=== PATIENT | female | born 1955 | race Caucasian/White ===

== ENCOUNTER 2020-01-21 22:42 | Inpatient (IN) | payer BC ==
[2020-01-21] MEDS ORDERED: Ticagrelor 90 MG Tab PO ONE (22:46)
[2020-01-21] MEDS ORDERED: Famotidine 20 MG/2 ML SDV IVPUSH ONE (22:46)
--- NOTE | 2020-01-21 22:46 | EDM.PDOC ---
ED HPI GENERAL MEDICAL PROBLEM - General Chief Complaint: Respiratory Problem Stated Complaint: sob Time Seen by Provider: 01/21/20 22:45 Source of Information: Reports: Patient, Old Records ([facility] chart/EMR) History Limitations: Reports: No Limitations - History of Present Illness INITIAL COMMENTS - FREE TEXT/NARRATIVE: The patient drove herself to the emergency room via private automobile for evaluation of a 4-day history of progressive generalized weakness, dyspnea, and loss of taste and smell sensation. She was seen by her regular provider earlier this afternoon with O2 sat of 94% at that time but possible pneumonia and some nausea from subsequently prescribed antibiotic. Patient also had some previous headaches but not currently. She does complain of 6/10 epigastric burning type sensation with 2 OTC Tums taken 1 hour prior to arrival. Possible fever and chills, however temperature not measured, with last Aleve dose at 10 AM this morning. Her was admitted earlier today with COVID-19 and bilateral pneumonia, however no other known exposure to infection. No recent history of other abdominal pain, emesis, diarrhea, melena, gross hematochezia, or any food intolerance, including fatty foods, etc.. She denies any gross hematuria, colic, or other UTI symptoms. The patient denies any chest pain/pressure, heart flutter, dizziness, orthostasis, orthopnea, diaphoresis, paresthesias, recent decreased exercise tolerance, or any other anginal-type symptoms. No history of recent visual changes, diplopia, change in mental status, or other change in neurological status. Onset: Gradual Onset Date: 01/17/20 Duration: Getting Worse Location: Reports: Abdomen. Denies: Head, Face, Neck, Chest, Back, Upper Extremity, Left, Upper Extremity, Right, Radiates to Quality: Reports: Burning Severity: Moderate Improves with: Reports: None Worsens with: Reports: None Context: Reports: Sick Contact ( as above) Associated Symptoms: Reports: Cough, Fever/Chills, Headaches, Nausea/Vomiting, Shortness of Breath, Weakness. Denies: Confusion, Chest Pain, cough w sputum, Diaphoresis, Loss of Appetite, Malaise, Syncope Treatments PARTS COUNTER ASSOCIATE: Reports: NSAIDS, Other Medication(s) - Related Data Allergies Allergy/AdvReac Type Severity Reaction Status Date / Time nitrofurantoin Allergy Rash Verified 01/21/20 22:44 [From Macrobid] Home Meds: Home Meds Acetaminophen [Tylenol Extra Strength] 500 mg PO BEDTIME 01/21/20 [History] Levofloxacin 500 mg PO DAILY 01/21/20 [History] Multivitamin with Minerals [Multiple Vitamin] 1 tab PO DAILY 01/21/20 [History] Naproxen Sodium [Aleve] 220 mg PO DAILY 01/21/20 [History] Triamterene/Hydrochlorothiazid [Triamterene-HCTZ 37.5-25 MG] 1 tab PO DAILY 01/21/20 [History] Past Medical History HEENT History: Reports: Allergic Rhinitis, Cataract, Other (See Below). Denies: Glaucoma, Hard of Hearing, Impaired Vision, Macular Degeneration, Otitis Media, Retinal Detachment Other HEENT History: Beginning cataracts with no surgeries. Cardiovascular History: Reports: High Cholesterol, Hypertension, Other (See Below). Denies: Afib, Aneurysm, Arrhythmia, Blood Clots/VTE/DVT, CAD, Heart Failure, Heart Murmur, ID, PVD, Syncope Other Cardiovascular History: Hyperlipidemia with no current medical therapy. Respiratory History: Reports: Intubation, Previous, Sleep Apnea, Other (See Below). Denies: Asthma, Bronchitis, Recurrent, COPD, Intubation, Difficult, PE, Pneumonia, Recurrent, Pneumothorax Other Respiratory History: Patient currently uses BiPAP. Gastrointestinal History: Reports: Cholelithiasis. Denies: Bowel Obstruction, Celiac Disease, Chronic Constipation, Chronic Diarrhea, Colon Polyp, Diverticulosis, Fecal Incontinence, Gastritis, GERD, GI Bleed, Hepatitis, Hiatal Hernia, Irritable Bowel Syndrome, Jaundice, Pancreatitis, PUD Genitourinary History: Reports: None. Denies: Acute Renal Failure, Chronic Renal Insuffiency, Renal Calculus, Retention, Urinary, STD, Urinary Incontinence, UTI, Recurrent COSTUMED CHARACTER History: Reports: Dysfunctional Uterine Bleeding, Fibroids, . Denies: Endometriosis, Spontaneous : 4 Para: 4 LMP (Approximate): Other (See Below) Other COSTUMED CHARACTER History: with third secondary to breech presentation. Otherwise full term without complications during pregnancies or deliveries. Surgical menopause as below. Musculoskeletal History: Reports: Back Pain, Chronic, Fracture, Neck Pain, Chronic, Osteoarthritis, Other (See Below). Denies: Arthritis, Gout, RA, SLE Other Musculoskeletal History: Right ankle fracture. Neurological History: Reports: None. Denies: Cerebral Aneurysms, Concussion, CVA, Headaches, Chronic, Head Trauma, Migraines, MS, Neuropathy, Peripheral, Parkinson's, Seizure, TIA Psychiatric History: Reports: None. Denies: Abuse, Victim of, ADD, ADHD, Addiction, Anxiety, Depression, Psych Hospitalization(s), PTSD, Suicide Attempt, Suicidal Ideation Endocrine/Metabolic History: Reports: Obesity/BMI 30+, Osteopenia. Denies: Diabetes, Gestational, Diabetes, Type I, Diabetes, Type II, Diabetes Mellitus, Type 3c, Hypothyroidism, Osteoporosis Hematologic History: Denies: Anemia, Blood Transfusion(s), Iron Deficiency Immunologic History: Reports: None. Denies: AIDS, HIV, SLE Oncologic (Cancer) History: Reports: Basal Cell Carcinoma. Denies: Breast, Cervix, Colon, Hodgkin's Lymphoma, Leukemia, Malignant Melanoma, Non-Hodgkin's Lymphoma, Ovarian, Squamous Cell Carcinoma, Uterine Dermatologic History: Reports: None. Denies: Eczema, Psoriasis - Infectious Disease History Infectious Disease History: Reports: Chicken Pox, MRSA (Right knee cellulitis and left nostril.), Mumps. Denies: C-Difficile, Measles, Meningitis, Mononucleosis, Pertussis (Whooping Cough), Rheumatic Fever, Rubella, Scarlet Fever, Shingles, TB, VRE - Past Surgical History Head Surgeries/Procedures: Reports: None HEENT Surgical History: Reports: Oral Surgery, Other (See Below). Denies: Brenna noidectomy, Cataract Surgery, Eye Surgery, Laser Surgery, LASIK, Myringotomy w Tube(s), Naso-Sinus Surgery, Tonsillectomy Other HEENT Surgeries/Procedures: Ruth teeth extraction x4 in her early 40s with additional teeth extractions. Cardiovascular Surgical History: Reports: None. Denies: Varicose Respiratory Surgical History: Reports: None. Denies: Thoracentesis GI Surgical History: Reports: Cholecystectomy, Colonoscopy, Other (See Below). Denies: Appendectomy, EGD, Hernia, Abdominal, Hernia, Inguinal, Hernia Repair/Other, Polypectomy Other GI Surgeries/Procedures: Colonoscopy in about 2014. Laparoscopic cholecystectomy in 2006. Female Surgical History: Reports: Section, Hysterectomy, Salpingo- Oophorectomy, Other (See Below). Denies: Breast Biopsy, D&C, Tubal Ligation Other Female Surgeries/Procedures: Complete hysterectomy with bilateral salpingo-oophorectomy at age 49 secondary to uterine fibroids. as above. Endocrine Surgical History: Reports: None. Denies: Thyroid Biopsy Neurological Surgical History: Reports: None. Denies: C-Spine, Discectomy, Laminectomy, Lumbar Spine, Sacral Spine, Spinal Fusion, Vertebroplasty Musculoskeletal Surgical History: Reports: ORIF, Other (See Below). Denies: Arthroscopic Procedure, Carpal Tunnel, Ganglion Cyst, Joint Replacement, Shoulder Surgery Other Musculoskeletal Surgeries/Procedures:: Right foot surgery in 2017 including fusion and hallux valgus repair, etc. Oncologic Surgical History: Reports: Other (See Below) Other Oncologic Surgeries/Procedures: Excision of basal cell carcinoma from the right temporal region in 2009 in the left nostril in 2014. Dermatological Surgical History: Reports: Skin Biopsy, Other (See Below) Other Dermatological Surgeries/Procedures: Basal cell carcinoma excisions as above. - Past Imaging History Past Imaging History: Reports: CAT Scan (CT of the head on 02/06/2017.), Ultrasound (Gallbladder ultrasound on 12/18/2006.) Social & Family History - Family History HEENT: Reports: None. Denies: Glaucoma, Macular Degeneration, Retinal Detachment Cardiac: Reports: Hypertension, Other (See Below). Denies: Afib, Aneurysm, Arrhythmia, Blood Clots/VTE/DVT, CAD, Heart Failure, Heart Murmur, High Cholesterol, ID, Pacemaker, Syncope Other Cardiac Family History: Hypertension in parents, 3 brothers and 4 sisters. Respiratory: Reports: COPD, Other (See Below). Denies: Asthma, PE, Pneumothorax, Sleep Apnea Other Respiratory Family Hisory: Sister with probable COPD secondary to tobacco use. GI: Reports: None. Denies: Celiac Disease, Cholelithiasis, Colon Polyps, GI bleed, Hepatitis, Inflammatory Bowel Disease, PUD : Reports: None. Denies: Renal Calculus, Renal Disease/Insufficiency OBGYN: Reports: , Other (See Below). Denies: Dysfunctional uterine bleeding, Endometriosis, Fibroids, Recurrent Spontaneous Other OBGYN Family History: Sister with uterine duplex with infertility and SAB. Musculoskeletal: Reports: Arthritis, RA, Other (See Below). Denies: Gout, SLE Other Musculoskeletal Family History: Mother with rheumatoid arthritis. Neurological: Reports: None. Denies: Alzheimers Disease, Cerebral Aneurysms, CVA, Dementia, Migraines, MS, Parkinson's, Seizure, TIA Psychiatric: Reports: Anxiety, Depression, Other (See Below). Denies: Abuse, Victim of, ADD, ADHD, Psych Hospitalization(s), PTSD, Suicide Attempt Other Psychiatric Family History: Mother with anxiety depression disorder. Son with successful suicide at age 21 with anxiety depression disorder. Endocrine/Metabolic: Reports: Hypothyroidism, Other (See Below). Denies: Diabetes, Type I, Diabetes, type II, Diabetes Mellitus, Type 3c, IDDM Other Endocrine/Metabolic Family History: Maternal grandmother and sister with hypothyroidism. Hematologic: Reports: None. Denies: Anemia, SLE Immunologic: Reports: None. Denies: AIDS, HIV, SLE Dermatologic: Reports: None. Denies: Eczema, Psoriasis Oncologic: Reports: Lung, Other (See Below). Denies: Cervix, Colon, Hodgkin's Lymphoma, Leukemia, Lymphoma, Non-Hodgkin's Lymphoma, Ovarian, Skin, Uterine Other Oncologic Family History: Mother with fatal lung cancer at age 64 with history of tobacco use. Paternal grandfather with history of tobacco use and fatal lung cancer at age 84. - Tobacco Use Tobacco Use Status *Q: Never Tobacco User Tobacco Use Within Last Twelve Months: No Used Tobacco, but Quit: No Smoking Cessation Information Provided To Patient: No Second Hand Smoke Exposure: No Second Hand Smoke Education Provided: No - Caffeine Use Caffeine Use: Reports: Coffee (1 cup/day.). Denies: Energy Drinks, Soda, Tea - Alcohol Use Alcohol Use History: Yes Days Per Week of Alcohol Use: 1 Number of Drinks Per Day: 2 Number of Drinks Per Day Comment: Usually wine. No previous DWIs, problems with alcohol abuse, etc. Total Drinks Per Week: 2 Alcohol Use in Last Twelve Months: Yes - Recreational Drug Use Recreational Drug Use: No Drug Use in Last 12 Months: No Recreational Drug Type: Denies: Amphetamines (Speed), Cocaine, Heroin, Inhalants (Glues, Solvents, Aerosols), LSD (Acid), Marijuana/Hashish, Methamphetamine, Morphine, Oxycodone - Living Situation & Occupation Living situation: Reports: (1975. 4 children.), with Family () Occupation: Employed ([employer] service) ED ROS GENERAL - Review of Systems Review Of Systems: Comprehensive ROS is negative, except as noted in HPI. ED EXAM, GENERAL - Physical Exam Exam: See Below Exam Limited By: No Limitations General Appearance: Alert, WD/WN, No Apparent Distress Eye Exam: Bilateral Eye: EOMI, Normal Inspection (No nystagmus), PERRL Ears: Normal External Exam, Normal Canal, Hearing Grossly Normal, Normal TMs Nose: Normal Mucosa, No Blood, Clear Rhinorrhea Throat/Mouth: Normal Inspection, Normal Lips, Normal Teeth (Occasional missing teeth), Normal Gums, Normal Oropharynx, Normal Voice, No Airway Compromise. No: Dysphagia, Perioral Cyanosis Head: Atraumatic, Normocephalic. No: Facial Swelling, Facial Tenderness, Sinus Tenderness Neck: Normal Inspection, Supple, Non-Tender, Full Range of Motion. No: Carotid Bruit, Lymphadenopathy (L), Lymphadenopathy (R), Thyromegaly Respiratory/Chest: No Respiratory Distress, No Accessory Muscle Use, Chest Non- Tender, Rales (Mild to moderate bilateral diffuse rales particularly in the bases left greater than right). No: Rhonchi, Wheezing, Pleural Rub, Retractions Cardiovascular: Normal Peripheral Pulses, Regular Rate, Rhythm, No Edema, No Gallop, No JVD, No Murmur, No Rub. No: Gallop/S3, Gallop/S4, Friction Rub Peripheral Pulses: 2+: Radial (L), Radial (R), Dorsalis Pedis (L), Dorsalis Pedis (R) GI/Abdominal: Normal Bowel Sounds, Soft, Non-Tender, No Organomegaly, No Distention, No Abnormal Bruit, No Mass, Other (Obese). No: Guarding (Female) Exam: Deferred Rectal (Female) Exam: Deferred Back Exam: Normal Inspection, Full Range of Motion. No: CVA Tenderness (L), CVA Tenderness (R), Muscle Spasm Extremities: Normal Inspection, Normal Range of Motion, Non-Tender, No Pedal Edema, Normal Capillary Refill. No: Jessee's Sign Neurological: Alert, Oriented, CN II-XII Intact, Normal Cognition, Normal Gait, Normal Reflexes, No Motor/Sensory Deficits Psychiatric: Normal Affect, Normal Mood Skin Exam: Warm, Dry, Intact, Normal Color, No Rash. No: Diaphoretic, W ound/Incision Lymphatic: No Adenopathy #1 Interpretation EKG Date: 01/22/20 Time: 00:18 Rhythm: NSR Rate (Beats/Min): 89 [place]: Normal (Left cardiac axis) P-Wave: Present QRS: Wide (0.10 seconds representing repolarization changes versus beginning incomplete right bundle branch block) ST-T: Other (T wave inversion in leads V1 and V2 with possible anterior wall ischemia versus changes from right bundle branch block) QT: Normal KY/PQ Interval: 0.14 seconds with extreme poor R wave progression in the anterior leads Comparison: NA - No Prior EKG EKG Interpretation Comments: 1. Possible anterior wall cardiac ischemia 2. Incomplete right bundle branch block 3. Borderline short [place] interval Course - Vital Signs Last Recorded V/S: Last Vital Signs Temp 38.2 C H 01/21/20 22:47 Pulse 88 01/22/20 00:13 Resp 21 H 01/22/20 00:13 BP 182/95 H 01/22/20 00:13 Pulse Ox 94 L 01/22/20 00:13 Vital Signs - 24 hr 01/21/20 01/21/20 01/22/20 22:44 22:47 00:13 Temperature [ 37.4 C 38.2 C H Temporal] Pulse, 98 91 88 Peripheral [ Pulse Oximetry] Respiratory 21 H 14 21 H Rate Blood Pressure 137/79 146/78 H 182/95 H [Right Upper Arm] O2 Sat by Pulse 89 L 96 94 L Oximetry O2 Sat by Pulse 93 L Oximetry [ Nasal Cannula] - Orders/Labs/Meds Orders: Active Orders 24 hr Category Date Time Status Cardiac Monitoring [RC] . DIRECTED Care 01/21/20 22:47 Active EKG Documentation Completion [RC] ASDIRECTED Care 01/21/20 22:47 Active Oxygen Therapy, ED [RC] PRN Care 01/21/20 22:47 Active Peripheral IV Care [RC] . DIRECTED Care 01/21/20 22:47 Active Pulse Oximetry [RC] CONTINUOUS Care 01/21/20 22:47 Active Up With Assistance [RC] PFP Care 01/21/20 22:47 Active Vital Signs [RC] PFP Care 01/21/20 22:47 Active Nothing per Oral Now Diet [DIET] Diet 01/21/20 Breakfast Active Chest 1V Frontal [CR] Stat Exams 01/21/20 22:47 Taken CORONAVIRUS COVID-19 ROSINA [MOLEC] Stat Lab 01/21/20 22:49 Ordered CULTURE BLOOD [BC] Stat Lab 01/21/20 23:00 Received CULTURE BLOOD [] Stat Lab 01/21/20 23:10 Received CULTURE STREP A CONFIRMATION [] Stat Lab 01/21/20 22:48 Results STREP SCRN A RAPID W CULT CONF [] Stat Lab 01/21/20 22:48 Results Acetaminophen [TylenoL] Med 01/22/20 00:29 Once 650 mg PO NOW ONE Sodium Chloride 0.9% [Saline Flush] Med 01/21/20 22:46 Active 10 ml FLUSH ASDIRECTED PRN cefTRIAXone [Rocephin] 1 gm Med 01/22/20 00:01 Active Sodium Chloride 0.9% [Normal Saline] 100 ml IV ONETIME Blood Culture x2 Reflex Set [OM.PC] Urgent Oth 01/21/20 23:41 Ordered Isolation [COMM] Routine Oth 01/21/20 22:49 Active Obtain Past Medical Record [OM.PC] Urgent Oth 01/21/20 22:47 Active Peripheral IV Insertion Adult [OM.PC] Stat Oth 01/21/20 22:47 Ordered Resuscitation Status Stat Resus Stat 01/21/20 22:46 Ordered EKG 12 Lead [EK] Stat Ther 01/21/20 22:47 Ordered Medication Orders Ceftriaxone Sodium 1 gm/ (Sodium Chloride) 100 mls @ 200 mls/hr IV ONETIME ONE Stop: 01/22/20 00:30 Last Admin: 01/22/20 00:12 Dose: 200 mls/hr Documented by: SEUN Sodium Chloride (Saline Flush) 10 ml FLUSH ASDIRECTED PRN PRN Reason: Keep Vein Open Last Admin: 01/21/20 23:14 Dose: 10 ml Documented by: SEUN Labs: Laboratory Tests 01/21/20 01/21/20 01/21/20 Range/Units 23:00 23:00 23:00 WBC 4.4 (4.0-10.2) K/uL RBC 5.16 H (3.77-5.09) M/uL Hgb 15.4 (11.7-15.5) g/dL Hct 46.7 H (34.0-46.0) % MCV 90.5 (84.0-98.0) fL MCH 29.8 (28.2-33.3) pg MCHC 33.0 (31.7-36.0) g/dL RDW 14.4 H (11.2-14.1) % Plt Count 163 (150-350) K/uL Neut % (Auto) 72.5 (45.0-80.0) % Lymph % (Auto) 21.6 (10.0-50.0) % [place] % (Auto) 5.7 (2.0-14.0) % Eos % (Auto) 0.0 (0.0-5.0) % Baso % (Auto) 0.2 (0.0-2.0) % Neut # (Auto) 3.16 (1.40-7.00) K/uL Lymph # (Auto) 0.94 (0.50-3.50) K/uL [place] # (Auto) 0.25 (0.00-1.00) K/uL Eos # (Auto) 0.00 (0.00-0.50) K/uL Baso # (Auto) 0.01 (0.00-0.20) K/uL PT 10.4 (9.5-12.0) SEC INR 1.0 APTT 26.4 (24.5-32.8) SEC D-Dimer, Quantitative 470 H (0-400) ng/mL Sodium (136-145) mmol/L Potassium (3.5-5.1) mmol/L Chloride (98-107) mmol/L Carbon Dioxide (21.0-32.0) mmol/L BUN (7-18) mg/dL Creatinine (0.51-1.17) mg/dL Est Cr Clr Drug Dosing mL/min Estimated GFR (MDRD) mL/min Glucose (74-106) mg/dL Lactic Acid (0.4-2.0) mmol/L Uric Acid (2.6-7.2) mg/dL Calcium (8.5-10.1) mg/dL Magnesium (1.8-2.4) mg/dL Total Bilirubin (0.2-1.0) mg/dL AST (15-37) U/L ALT (12-78) U/L Alkaline Phosphatase (46-116) IU/L Creatine Kinase (26-308) U/L Creatine Kinase Index (0.0-2.5) % CK-MB (CK-2) (0.00-3.60) ng/mL Troponin I (0.000-0.056) ng/mL NT-Pro-B Natriuret Pep (0-125) pg/mL Total Protein (6.4-8.2) g/dL Albumin (3.4-5.0) g/dL Amylase (25-115) U/L Lipase (73-393) U/L TSH, Ultra Sensitive (0.358-3.740) mIU/mL 01/21/20 01/21/20 Range/Units 23:00 23:00 WBC (4.0-10.2) K/uL RBC (3.77-5.09) M/uL Hgb (11.7-15.5) g/dL Hct (34.0-46.0) % MCV (84.0-98.0) fL MCH (28.2-33.3) pg MCHC (31.7-36.0) g/dL RDW (11.2-14.1) % Plt Count (150-350) K/uL Neut % (Auto) (45.0-80.0) % Lymph % (Auto) (10.0-50.0) % [place] % (Auto) (2.0-14.0) % Eos % (Auto) (0.0-5.0) % Baso % (Auto) (0.0-2.0) % Neut # (Auto) (1.40-7.00) K/uL Lymph # (Auto) (0.50-3.50) K/uL [place] # (Auto) (0.00-1.00) K/uL Eos # (Auto) (0.00-0.50) K/uL Baso # (Auto) (0.00-0.20) K/uL PT (9.5-12.0) SEC INR APTT (24.5-32.8) SEC D-Dimer, Quantitative (0-400) ng/mL Sodium 137 (136-145) mmol/L Potassium 3.6 (3.5-5.1) mmol/L Chloride 98 (98-107) mmol/L Carbon Dioxide 26.1 (21.0-32.0) mmol/L BUN 25 H (7-18) mg/dL Creatinine 0.84 (0.51-1.17) mg/dL Est Cr Clr Drug Dosing 59.28 mL/min Estimated GFR (MDRD) > 60 mL/min Glucose 117 H (74-106) mg/dL Lactic Acid 1.2 (0.4-2.0) mmol/L Uric Acid 4.2 (2.6-7.2) mg/dL Calcium 9.2 (8.5-10.1) mg/dL Magnesium 1.9 (1.8-2.4) mg/dL Total Bilirubin 0.4 (0.2-1.0) mg/dL AST 31 (15-37) U/L ALT 40 (12-78) U/L Alkaline Phosphatase 67 (46-116) IU/L Creatine Kinase 98 (26-308) U/L Creatine Kinase Index 0.6 (0.0-2.5) % CK-MB (CK-2) 0.60 (0.00-3.60) ng/mL Troponin I 0.000 (0.000-0.056) ng/mL NT-Pro-B Natriuret Pep 159 H (0-125) pg/mL Total Protein 8.2 (6.4-8.2) g/dL Albumin 3.8 (3.4-5.0) g/dL Amylase 61 (25-115) U/L Lipase 108 (73-393) U/L TSH, Ultra Sensitive 2.473 (0.358-3.740) mIU/mL COVID-19 rapid test conducted with results pending Blood cultures x2 were collected with results pending Microbiology 01/21/20 22:48 Group A Streptococcus Rapid Screen - Final Throat NEGATIVE STREP A SCREEN REFERENCE RANGE: NEGATIVE 01/21/20 22:49 Influenza Type A Antigen Screen - Final Nasal, Unspecified NEGATIVE INFLUENZA A VIRUS AG REFERENCE RANGE: NEGATIVE Influenza Type B Antigen Screen - Final NEGATIVE INFLUENZA B VIRUS AG REFERENCE RANGE: NEGATIVE Meds: Medications Generic Name Dose Route Start Last Admin Trade Name Freq PRN Reason Stop Dose Admin Ceftriaxone Sodium 1 gm/ 100 mls @ 200 mls/hr 01/22/20 00:01 01/22/20 00:12 Sodium Chloride IV 01/22/20 00:30 200 mls/hr ONETIME ONE Administration Sodium Chloride 10 ml 01/21/20 22:46 01/21/20 23:14 Saline Flush FLUSH 10 ml ASDIRECTED PRN Administration Keep Vein Open Discontinued Medications Generic Name Dose Route Start Last Admin Trade Name Anuradha PRN Reason Stop Dose Admin Famotidine 40 mg 01/21/20 22:46 01/21/20 23:12 Pepcid IVPUSH 01/21/20 22:47 40 mg ONETIME ONE Administration Ticagrelor 180 mg 01/21/20 22:46 01/21/20 23:11 Brilinta PO 01/21/20 22:47 180 mg ONETIME ONE Administration - Radiology Interpretation Free Text/Narrative:: patient monitor shows normal sinus rhythm with average heart rate in the 80-90s with occasional mild sinus tachycardia in the 100s with no ectopy or arrhythmia. Chest x-ray, portable, shows evidence of mild bilateral pulmonary infiltrates including in the bases bilaterally with no cardiomegaly, CHF, or pneumothorax. Departure - Departure Time of Disposition: 00:30 Disposition: Admitted As Inpatient 64 Condition: Good Clinical Impression: D-dimer, elevated, Pneumonia, Hypertension, Peptic reflux disease, Osteoarthritis - Discharge Information Referrals: Joceline Segundo, TEASELER [Primary Care Provider] - Forms: ED Department Discharge Sepsis Event Note (ED) - Focused Exam Vital Signs: Vital Signs Temp Pulse Resp BP Pulse Ox Pulse Ox 01/22/20 00:13 88 21 H 182/95 H 94 L 01/21/20 22:47 38.2 C H 91 14 146/78 H 96 93 L 01/21/20 22:44 37.4 C 98 21 H 137/79 89 L - Problem List & Annotations (1) Pneumonia SNOMED Code(s): 684940086 Code(s): J18.9 - PNEUMONIA, UNSPECIFIED ORGANISM Status: Acute Priority: High Onset Date: 01/22/20 Annotation/Comment:: Lactic acid level is normal with no significant leukocytosis. Blood cultures x2 were collected. COVID-19 rapid test was also collected with significant exposure and her being hospitalized in this facility for bilateral pneumonia, hypoxia, and COVID-19. IV Rocephin initiated in the emergency room with additional initiation of oral doxycycline in the a.m. Combivent therapy as needed. Additional treatment of COVID-19 per guidelines depending on her clinical course. Initially at time of arrival she was only 85 to 87% after minimal exertion on room air however significantly proved O2 sats in the 95th percentile prior to admission without treatment. She is not a candidate for remdesivir at this time secondary to absence of significant hypoxemia at rest. Isolation precautions initiated. Qualifiers: Pneumonia type: due to unspecified organism Laterality: bilateral Lung location: unspecified part of lung Qualified Code(s): J18.9 - Pneumonia, unspecified organism (2) D-dimer, elevated SNOMED Code(s): 733130313 Code(s): R79.89 - OTHER SPECIFIED ABNORMAL FINDINGS OF BLOOD CHEMISTRY Status: Acute Priority: High Onset Date: 01/22/20 Annotation/Comment:: Venous Doppler studies in the a.m. Subcutaneous heparin therapy as treatment both for her D-dimer elevation and COVID-19. [address] CT of the chest depending on her clinical course. (3) Peptic reflux disease SNOMED Code(s): 314024660 Code(s): K21.9 - GASTRO-ESOPHAGEAL REFLUX DISEASE WITHOUT ESOPHAGITIS Status: Acute Priority: Medium Onset Date: 01/21/20 Annotation/Comment:: High-dose IV Pepcid given in the emergency room. Observe for now. Continue IV Pepcid therapy secondary to her probable COVID-19 (4) Osteoarthritis SNOMED Code(s): 347387412 Code(s): M19.90 - UNSPECIFIED OSTEOARTHRITIS, UNSPECIFIED SITE Status: Chronic Priority: Medium Annotation/Comment:: Stable by history. Qualifiers: Osteoarthritis location: multiple joints Osteoarthritis type: primary Qualified Code(s): M89.49 - Other hypertrophic osteoarthropathy, multiple sites (5) Hypertension SNOMED Code(s): 04861459 Code(s): I10 - ESSENTIAL (PRIMARY) HYPERTENSION Status: Chronic Priority: Medium Annotation/Comment:: Moderate control in the emergency room. Continue to observe closely. Qualifiers: Hypertension type: essential hypertension Qualified Code(s): I10 - Essential (primary) hypertension - Problem List Review Problem List Initiated/Reviewed/Updated: Yes - My Orders Last 24 Hours: My Active Orders 01/21/20 Breakfast Nothing per Oral Now Diet [DIET] 01/21/20 22:46 Sodium Chloride 0.9% [Saline Flush] 10 ml FLUSH ASDIRECTED PRN Resuscitation Status Stat 01/21/20 22:47 Cardiac Monitoring [RC] . DIRECTED EKG Documentation Completion [RC] ASDIRECTED Oxygen Therapy, ED [RC] PRN Peripheral IV Care [RC] . DIRECTED Pulse Oximetry [RC] CONTINUOUS Up With Assistance [RC] PFP Vital Signs [RC] PFP Chest 1V Frontal [CR] Stat Obtain Past Medical Record [OM.PC] Urgent Peripheral IV Insertion Adult [OM.PC] Stat EKG 12 Lead [EK] Stat 01/21/20 22:48 CULTURE STREP A CONFIRMATION [RM] Stat STREP SCRN A RAPID W CULT CONF [RM] Stat 01/21/20 22:49 CORONAVIRUS COVID-19 ROSINA [MOLEC] Stat Isolation [COMM] Routine 01/21/20 23:00 CULTURE BLOOD [BC] Stat 01/21/20 23:10 CULTURE BLOOD [BC] Stat 01/21/20 23:41 Blood Culture x2 Reflex Set [OM.PC] Urgent 01/22/20 00:01 cefTRIAXone [Rocephin] 1 gm Sodium Chloride 0.9% [Normal Saline] 100 ml IV ONETIME 01/22/20 00:29 Acetaminophen [TylenoL] 650 mg PO NOW ONE - Assessment/Plan Admission H&P: Please use this note as an admission H&P Last 24 Hours: My Active Orders 01/21/20 Breakfast Nothing per Oral Now Diet [DIET] 01/21/20 22:46 Sodium Chloride 0.9% [Saline Flush] 10 ml FLUSH ASDIRECTED PRN Resuscitation Status Stat 01/21/20 22:47 Cardiac Monitoring [RC] . DIRECTED EKG Documentation Completion [RC] ASDIRECTED Oxygen Therapy, ED [RC] PRN Peripheral IV Care [RC] . DIRECTED Pulse Oximetry [RC] CONTINUOUS Up With Assistance [RC] PFP Vital Signs [RC] PFP Chest 1V Frontal [CR] Stat Obtain Past Medical Record [OM.PC] Urgent Peripheral IV Insertion Adult [OM.PC] Stat EKG 12 Lead [EK] Stat 01/21/20 22:48 CULTURE STREP A CONFIRMATION [RM] Stat STREP SCRN A RAPID W CULT CONF [RM] Stat 01/21/20 22:49 CORONAVIRUS COVID-19 ROSINA [MOLEC] Stat Isolation [COMM] Routine 01/21/20 23:00 CULTURE BLOOD [BC] Stat 01/21/20 23:10 CULTURE BLOOD [BC] Stat 01/21/20 23:41 Blood Culture x2 Reflex Set [OM.PC] Urgent 01/22/20 00:01 cefTRIAXone [Rocephin] 1 gm Sodium Chloride 0.9% [Normal Saline] 100 ml IV ONETIME 01/22/20 00:29 Acetaminophen [TylenoL] 650 mg PO NOW ONE Assessment:: As above Plan: As above. Extensive precautions were given to the patient, who is in agreement with the treatment plan. The patient will require about 3-4 days of inpatient/acute care secondary to multiple health problems as above.
[2020-01-21] MEDS: Sodium Chloride 0.9% 10 ML Syringe FLUSH PRN (23:14)
[2020-01-21 23:21] LABS: PTT,PARTIAL THROMBOPLSTIN TIME 26.4 SEC (24.5-32.8)
[2020-01-21 23:31] LABS: CHLORIDE,CL 98 mmol/L (98-107); SODIUM,NA 137 mmol/L (136-145)
[2020-01-22] MEDS ORDERED: cefTRIAXone 1 GM in Sodium Chloride 0.9% 100 ML IV ONE (00:01)
[2020-01-22] MEDS ORDERED: Acetaminophen 325 MG Tab PO ONE (00:29)
[2020-01-22] MEDS ORDERED: Sodium Chloride 0.9% 10 ML Syringe FLUSH PRN (00:33)
[2020-01-22] MEDS ORDERED: Lisinopril 10 MG Tab PO ONE (00:36)
[2020-01-22] MEDS ORDERED: Albuterol/Ipratropium 4 GM Inhalation Spray INH PRN (00:38)
[2020-01-22] MEDS: Heparin Sodium 5,000 Units/ML Vial SUBCUT SCH ×3 (01:33→15:43)
[2020-01-22] MEDS ORDERED: Iopamidol 612 MG/ML 100 ML Bottle IVPUSH ONE (07:23)
[2020-01-22] MEDS: Doxycycline Monohydrate 100 MG Cap PO SCH ×2 (07:35→17:29)
[2020-01-22] MEDS: Dextromethorphan/guaiFENesin 600-30 MG Tab.ER PO SCH ×2 (07:35→17:29)
[2020-01-22] MEDS: Hydrochlorothiazide/Triamterene 50-75 MG Tab PO SCH (07:35)
[2020-01-22] MEDS ORDERED: Iopamidol 755 Mg/ML 100 ML Bottle IVPUSH STA (07:42)
[2020-01-22 08:20] LABS: HEMOGLOBIN A1C 5.9 % (4.3-5.7)
[2020-01-22] MEDS: Dexamethasone 10 MG/ML SDV IVPUSH SCH (09:09)
--- NOTE | 2020-01-22 09:58 | PCM.PN ---
- General Info Date of Service: 01/22/20 Admission Dx/Problem (Free Text): 1. Pneumonia with probable COVID-19 2. D-dimer elevation 3. Hypertension Functional Status: Reports: Pain Controlled, Tolerating Diet, Ambulating, Urinating, Incentive Spirometry. Denies: New Symptoms Pain Score: 0 - Review of Systems General: Reports: Fever, Weakness (Moderate generalized), Fatigue, Chills, Night Sweats. Denies: Malaise, Appetite (Adequate but decreased) HEENT: Reports: No Symptoms, Post Nasal Drip, Sinus Congestion, Rhinitis. Denies: Dysphasia, Ear Pain, Eye Pain, Headaches, Sore Throat, Visual Changes Pulmonary: Reports: Shortness of Breath, Cough. Denies: Pleuritic Chest Pain, Sputum, Hemoptysis, Wheezing Cardiovascular: Reports: Dyspnea on Exertion. Denies: Chest Pain, Palpitations, Orthopnea, PND, Edema, Lightheadedness Gastrointestinal: Reports: Diarrhea. Denies: Abdominal Pain, Constipation, Decreased Appetite, Difficulty Swallowing, Flatus, Hematochezia, Melena, Nausea, Vomiting Genitourinary: Reports: No Symptoms. Denies: Dysuria, Frequency, Burning, Urgency, Incontinence, Hematuria, Retention, Flank Pain Musculoskeletal: Reports: No Symptoms. Denies: Neck Pain, Shoulder Pain, Arm Pain, Back Pain, Leg Pain Skin: Reports: No Symptoms. Denies: Diaphoresis, Bruising, Pruritis, Rash Neurological: Reports: Weakness. Denies: Confusion, Dizziness, Headache, Numbness, Paresthesia, Syncope, Tingling, Difficulty Walking Psychiatric: Reports: No Symptoms. Denies: Confusion, Depression, Anxiety, Agitation, Cravings, Hallucinations, Homicidal Ideation - Patient Data Vitals - Most Recent: Last Vital Signs Temp 37.4 C 01/22/20 07:37 Pulse 79 01/22/20 07:37 Resp 20 01/22/20 07:37 BP 126/76 01/22/20 07:37 Pulse Ox 94 L 01/22/20 07:37 Vital Signs - 24 hr 01/21/20 01/21/20 01/22/20 22:44 22:47 00:13 Temperature [ 37.4 C 38.2 C H Temporal] Pulse, 98 91 88 Peripheral [ Pulse Oximetry] Respiratory 21 H 14 21 H Rate Blood Pressure Blood Pressure 137/79 146/78 H 182/95 H [Right Upper Arm] O2 Sat by Pulse 89 L 96 94 L Oximetry O2 Sat by Pulse 93 L Oximetry [ Nasal Cannula] 01/22/20 01/22/20 01/22/20 00:33 01:33 02:00 Temperature [ 38.8 C H 37.4 C Temporal] Pulse, 90 78 Peripheral [ Pulse Oximetry] Respiratory 21 H 20 Rate Blood Pressure 195/92 H Blood Pressure 195/99 H 176/84 H [Right Upper Arm] O2 Sat by Pulse 96 96 Oximetry O2 Sat by Pulse Oximetry [ Nasal Cannula] 01/22/20 01/22/20 01/22/20 04:00 05:48 07:37 Temperature [ 37.1 C 37.4 C 37.4 C Temporal] Pulse, 75 70 79 Peripheral [ Pulse Oximetry] Respiratory 12 20 20 Rate Blood Pressure Blood Pressure 120/75 117/75 126/76 [Right Upper Arm] O2 Sat by Pulse 96 90 L 94 L Oximetry O2 Sat by Pulse Oximetry [ Nasal Cannula] Weight - Most Recent: 95.254 kg I&O - Last 24 Hours: Intake & Output 01/21/20 01/22/20 01/22/20 22:59 06:59 14:59 Intake Total 0 Output Total 100 Balance -100 Imaging Impressions - Last 24 Hours: radiation monitor shows normal sinus rhythm in the 70s to 80s with no ectopy or arrhythmia Lab Results Last 24 Hours: Laboratory Results - last 24 hr 01/21/20 01/21/20 01/21/20 Range/Units 23:00 23:00 23:00 WBC 4.4 (4.0-10.2) K/uL RBC 5.16 H (3.77-5.09) M/uL Hgb 15.4 (11.7-15.5) g/dL Hct 46.7 H (34.0-46.0) % MCV 90.5 (84.0-98.0) fL MCH 29.8 (28.2-33.3) pg MCHC 33.0 (31.7-36.0) g/dL RDW 14.4 H (11.2-14.1) % Plt Count 163 (150-350) K/uL Neut % (Auto) 72.5 (45.0-80.0) % Lymph % (Auto) 21.6 (10.0-50.0) % [place] % (Auto) 5.7 (2.0-14.0) % Eos % (Auto) 0.0 (0.0-5.0) % Baso % (Auto) 0.2 (0.0-2.0) % Neut # (Auto) 3.16 (1.40-7.00) K/uL Lymph # (Auto) 0.94 (0.50-3.50) K/uL [place] # (Auto) 0.25 (0.00-1.00) K/uL Eos # (Auto) 0.00 (0.00-0.50) K/uL Baso # (Auto) 0.01 (0.00-0.20) K/uL PT 10.4 (9.5-12.0) SEC INR 1.0 APTT 26.4 (24.5-32.8) SEC D-Dimer, Quantitative 470 H (0-400) ng/mL Sodium (136-145) mmol/L Potassium (3.5-5.1) mmol/L Chloride (98-107) mmol/L Carbon Dioxide (21.0-32.0) mmol/L BUN (7-18) mg/dL Creatinine (0.51-1.17) mg/dL Est Cr Clr Drug Dosing mL/min Estimated GFR (MDRD) mL/min Glucose (74-106) mg/dL Hemoglobin A1c (4.3-5.7) % Lactic Acid (0.4-2.0) mmol/L Uric Acid (2.6-7.2) mg/dL Calcium (8.5-10.1) mg/dL Magnesium (1.8-2.4) mg/dL Total Bilirubin (0.2-1.0) mg/dL AST (15-37) U/L ALT (12-78) U/L Alkaline Phosphatase (46-116) IU/L Creatine Kinase (26-308) U/L Creatine Kinase Index (0.0-2.5) % CK-MB (CK-2) (0.00-3.60) ng/mL Troponin I (0.000-0.056) ng/mL NT-Pro-B Natriuret Pep (0-125) pg/mL Total Protein (6.4-8.2) g/dL Albumin (3.4-5.0) g/dL Triglycerides (30-150) mg/dL Cholesterol (100-200) mg/dL LDL Cholesterol, Calc (0-100) mg/dL HDL Cholesterol (40-60) mg/dL Amylase (25-115) U/L Lipase (73-393) U/L TSH, Ultra Sensitive (0.358-3.740) mIU/mL 01/21/20 01/21/20 01/22/20 Range/Units 23:00 23:00 07:20 WBC (4.0-10.2) K/uL RBC (3.77-5.09) M/uL Hgb (11.7-15.5) g/dL Hct (34.0-46.0) % MCV (84.0-98.0) fL MCH (28.2-33.3) pg MCHC (31.7-36.0) g/dL RDW (11.2-14.1) % Plt Count (150-350) K/uL Neut % (Auto) (45.0-80.0) % Lymph % (Auto) (10.0-50.0) % [place]osh % (Auto) (2.0-14.0) % Eos % (Auto) (0.0-5.0) % Baso % (Auto) (0.0-2.0) % Neut # (Auto) (1.40-7.00) K/uL Lymph # (Auto) (0.50-3.50) K/uL [place] # (Auto) (0.00-1.00) K/uL Eos # (Auto) (0.00-0.50) K/uL Baso # (Auto) (0.00-0.20) K/uL PT (9.5-12.0) SEC INR APTT (24.5-32.8) SEC D-Dimer, Quantitative (0-400) ng/mL Sodium 137 (136-145) mmol/L Potassium 3.6 (3.5-5.1) mmol/L Chloride 98 (98-107) mmol/L Carbon Dioxide 26.1 (21.0-32.0) mmol/L BUN 25 H (7-18) mg/dL Creatinine 0.84 (0.51-1.17) mg/dL Est Cr Clr Drug Dosing 59.28 mL/min Estimated GFR (MDRD) > 60 mL/min Glucose 117 H (74-106) mg/dL Hemoglobin A1c (4.3-5.7) % Lactic Acid 1.2 (0.4-2.0) mmol/L Uric Acid 4.2 (2.6-7.2) mg/dL Calcium 9.2 (8.5-10.1) mg/dL Magnesium 1.9 (1.8-2.4) mg/dL Total Bilirubin 0.4 (0.2-1.0) mg/dL AST 31 (15-37) U/L ALT 40 (12-78) U/L Alkaline Phosphatase 67 (46-116) IU/L Creatine Kinase 98 98 (26-308) U/L Creatine Kinase Index 0.6 0.9 (0.0-2.5) % CK-MB (CK-2) 0.60 0.90 (0.00-3.60) ng/mL Troponin I 0.000 (0.000-0.056) ng/mL NT-Pro-B Natriuret Pep 159 H (0-125) pg/mL Total Protein 8.2 (6.4-8.2) g/dL Albumin 3.8 (3.4-5.0) g/dL Triglycerides 77 (30-150) mg/dL Cholesterol 112 (100-200) mg/dL LDL Cholesterol, Calc 58 (0-100) mg/dL HDL Cholesterol 39 L (40-60) mg/dL Amylase 61 (25-115) U/L Lipase 108 (73-393) U/L TSH, Ultra Sensitive 2.473 (0.358-3.740) mIU/mL 01/22/20 Range/Units 07:20 WBC (4.0-10.2) K/uL RBC (3.77-5.09) M/uL Hgb (11.7-15.5) g/dL Hct (34.0-46.0) % MCV (84.0-98.0) fL MCH (28.2-33.3) pg MCHC (31.7-36.0) g/dL RDW (11.2-14.1) % Plt Count (150-350) K/uL Neut % (Auto) (45.0-80.0) % Lymph % (Auto) (10.0-50.0) % [place]osh % (Auto) (2.0-14.0) % Eos % (Auto) (0.0-5.0) % Baso % (Auto) (0.0-2.0) % Neut # (Auto) (1.40-7.00) K/uL Lymph # (Auto) (0.50-3.50) K/uL [place] # (Auto) (0.00-1.00) K/uL Eos # (Auto) (0.00-0.50) K/uL Baso # (Auto) (0.00-0.20) K/uL PT (9.5-12.0) SEC INR APTT (24.5-32.8) SEC D-Dimer, Quantitative (0-400) ng/mL Sodium (136-145) mmol/L Potassium (3.5-5.1) mmol/L Chloride (98-107) mmol/L Carbon Dioxide (21.0-32.0) mmol/L BUN (7-18) mg/dL Creatinine (0.51-1.17) mg/dL Est Cr Clr Drug Dosing mL/min Estimated GFR (MDRD) mL/min Glucose (74-106) mg/dL Hemoglobin A1c 5.9 H (4.3-5.7) % Lactic Acid (0.4-2.0) mmol/L Uric Acid (2.6-7.2) mg/dL Calcium (8.5-10.1) mg/dL Magnesium (1.8-2.4) mg/dL Total Bilirubin (0.2-1.0) mg/dL AST (15-37) U/L ALT (12-78) U/L Alkaline Phosphatase (46-116) IU/L Creatine Kinase (26-308) U/L Creatine Kinase Index (0.0-2.5) % CK-MB (CK-2) (0.00-3.60) ng/mL Troponin I (0.000-0.056) ng/mL NT-Pro-B Natriuret Pep (0-125) pg/mL Total Protein (6.4-8.2) g/dL Albumin (3.4-5.0) g/dL Triglycerides (30-150) mg/dL Cholesterol (100-200) mg/dL LDL Cholesterol, Calc (0-100) mg/dL HDL Cholesterol (40-60) mg/dL Amylase (25-115) U/L Lipase (73-393) U/L TSH, Ultra Sensitive (0.358-3.740) mIU/mL Laboratory Tests 01/21/20 01/21/20 01/21/20 Range/Units 22:49 23:00 23:00 WBC 4.4 (4.0-10.2) K/uL RBC 5.16 H (3.77-5.09) M/uL Hgb 15.4 (11.7-15.5) g/dL Hct 46.7 H (34.0-46.0) % MCV 90.5 (84.0-98.0) fL MCH 29.8 (28.2-33.3) pg MCHC 33.0 (31.7-36.0) g/dL RDW 14.4 H (11.2-14.1) % Plt Count 163 (150-350) K/uL Neut % (Auto) 72.5 (45.0-80.0) % Lymph % (Auto) 21.6 (10.0-50.0) % [place]osh % (Auto) 5.7 (2.0-14.0) % Eos % (Auto) 0.0 (0.0-5.0) % Baso % (Auto) 0.2 (0.0-2.0) % Neut # (Auto) 3.16 (1.40-7.00) K/uL Lymph # (Auto) 0.94 (0.50-3.50) K/uL [place]osh # (Auto) 0.25 (0.00-1.00) K/uL Eos # (Auto) 0.00 (0.00-0.50) K/uL Baso # (Auto) 0.01 (0.00-0.20) K/uL PT 10.4 (9.5-12.0) SEC INR 1.0 APTT 26.4 (24.5-32.8) SEC D-Dimer, Quantitative (0-400) ng/mL Sodium (136-145) mmol/L Potassium (3.5-5.1) mmol/L Chloride (98-107) mmol/L Carbon Dioxide (21.0-32.0) mmol/L BUN (7-18) mg/dL Creatinine (0.51-1.17) mg/dL Est Cr Clr Drug Dosing mL/min Estimated GFR (MDRD) mL/min Glucose (74-106) mg/dL Hemoglobin A1c (4.3-5.7) % Lactic Acid (0.4-2.0) mmol/L Uric Acid (2.6-7.2) mg/dL Calcium (8.5-10.1) mg/dL Magnesium (1.8-2.4) mg/dL Total Bilirubin (0.2-1.0) mg/dL AST (15-37) U/L ALT (12-78) U/L Alkaline Phosphatase (46-116) IU/L Creatine Kinase (26-308) U/L Creatine Kinase Index (0.0-2.5) % CK-MB (CK-2) (0.00-3.60) ng/mL Troponin I (0.000-0.056) ng/mL NT-Pro-B Natriuret Pep (0-125) pg/mL Total Protein (6.4-8.2) g/dL Albumin (3.4-5.0) g/dL Triglycerides (30-150) mg/dL Cholesterol (100-200) mg/dL LDL Cholesterol, Calc (0-100) mg/dL HDL Cholesterol (40-60) mg/dL Amylase (25-115) U/L Lipase (73-393) U/L TSH, Ultra Sensitive (0.358-3.740) mIU/mL SARS-CoV-2 RNA (ROSINA) Positive H (NEGATIVE) 01/21/20 01/21/20 01/21/20 Range/Units 23:00 23:00 23:00 WBC (4.0-10.2) K/uL RBC (3.77-5.09) M/uL Hgb (11.7-15.5) g/dL Hct (34.0-46.0) % MCV (84.0-98.0) fL MCH (28.2-33.3) pg MCHC (31.7-36.0) g/dL RDW (11.2-14.1) % Plt Count (150-350) K/uL Neut % (Auto) (45.0-80.0) % Lymph % (Auto) (10.0-50.0) % Mc[place]osh % (Auto) (2.0-14.0) % Eos % (Auto) (0.0-5.0) % Baso % (Auto) (0.0-2.0) % Neut # (Auto) (1.40-7.00) K/uL Lymph # (Auto) (0.50-3.50) K/uL Mc[place]osh # (Auto) (0.00-1.00) K/uL Eos # (Auto) (0.00-0.50) K/uL Baso # (Auto) (0.00-0.20) K/uL PT (9.5-12.0) SEC INR APTT (24.5-32.8) SEC D-Dimer, Quantitative 470 H (0-400) ng/mL Sodium 137 (136-145) mmol/L Potassium 3.6 (3.5-5.1) mmol/L Chloride 98 (98-107) mmol/L Carbon Dioxide 26.1 (21.0-32.0) mmol/L BUN 25 H (7-18) mg/dL Creatinine 0.84 (0.51-1.17) mg/dL Est Cr Clr Drug Dosing 59.28 mL/min Estimated GFR (MDRD) > 60 mL/min Glucose 117 H (74-106) mg/dL Hemoglobin A1c (4.3-5.7) % Lactic Acid 1.2 (0.4-2.0) mmol/L Uric Acid 4.2 (2.6-7.2) mg/dL Calcium 9.2 (8.5-10.1) mg/dL Magnesium 1.9 (1.8-2.4) mg/dL Total Bilirubin 0.4 (0.2-1.0) mg/dL AST 31 (15-37) U/L ALT 40 (12-78) U/L Alkaline Phosphatase 67 (46-116) IU/L Creatine Kinase 98 (26-308) U/L Creatine Kinase Index 0.6 (0.0-2.5) % CK-MB (CK-2) 0.60 (0.00-3.60) ng/mL Troponin I 0.000 (0.000-0.056) ng/mL NT-Pro-B Natriuret Pep 159 H (0-125) pg/mL Total Protein 8.2 (6.4-8.2) g/dL Albumin 3.8 (3.4-5.0) g/dL Triglycerides (30-150) mg/dL Cholesterol (100-200) mg/dL LDL Cholesterol, Calc (0-100) mg/dL HDL Cholesterol (40-60) mg/dL Amylase 61 (25-115) U/L Lipase 108 (73-393) U/L TSH, Ultra Sensitive 2.473 (0.358-3.740) mIU/mL SARS-CoV-2 RNA (ROSINA) (NEGATIVE) 01/22/20 01/22/20 Range/Units 07:20 07:20 WBC (4.0-10.2) K/uL RBC (3.77-5.09) M/uL Hgb (11.7-15.5) g/dL Hct (34.0-46.0) % MCV (84.0-98.0) fL MCH (28.2-33.3) pg MCHC (31.7-36.0) g/dL RDW (11.2-14.1) % Plt Count (150-350) K/uL Neut % (Auto) (45.0-80.0) % Lymph % (Auto) (10.0-50.0) % Mcintosh % (Auto) (2.0-14.0) % Eos % (Auto) (0.0-5.0) % Baso % (Auto) (0.0-2.0) % Neut # (Auto) (1.40-7.00) K/uL Lymph # (Auto) (0.50-3.50) K/uL Mcintosh # (Auto) (0.00-1.00) K/uL Eos # (Auto) (0.00-0.50) K/uL Baso # (Auto) (0.00-0.20) K/uL PT (9.5-12.0) SEC INR APTT (24.5-32.8) SEC D-Dimer, Quantitative (0-400) ng/mL Sodium (136-145) mmol/L Potassium (3.5-5.1) mmol/L Chloride (98-107) mmol/L Carbon Dioxide (21.0-32.0) mmol/L BUN (7-18) mg/dL Creatinine (0.51-1.17) mg/dL Est Cr Clr Drug Dosing mL/min Estimated GFR (MDRD) mL/min Glucose (74-106) mg/dL Hemoglobin A1c 5.9 H (4.3-5.7) % Lactic Acid (0.4-2.0) mmol/L Uric Acid (2.6-7.2) mg/dL Calcium (8.5-10.1) mg/dL Magnesium (1.8-2.4) mg/dL Total Bilirubin (0.2-1.0) mg/dL AST (15-37) U/L ALT (12-78) U/L Alkaline Phosphatase (46-116) IU/L Creatine Kinase 98 (26-308) U/L Creatine Kinase Index 0.9 (0.0-2.5) % CK-MB (CK-2) 0.90 (0.00-3.60) ng/mL Troponin I (0.000-0.056) ng/mL NT-Pro-B Natriuret Pep (0-125) pg/mL Total Protein (6.4-8.2) g/dL Albumin (3.4-5.0) g/dL Triglycerides 77 (30-150) mg/dL Cholesterol 112 (100-200) mg/dL LDL Cholesterol, Calc 58 (0-100) mg/dL HDL Cholesterol 39 L (40-60) mg/dL Amylase (25-115) U/L Lipase (73-393) U/L TSH, Ultra Sensitive (0.358-3.740) mIU/mL SARS-CoV-2 RNA (ROSINA) (NEGATIVE) [place] Results Last 24 Hours: Microbiology 01/21/20 22:48 Group A Streptococcus Rapid Screen - Final Throat NEGATIVE STREP A SCREEN REFERENCE RANGE: NEGATIVE 01/21/20 22:49 Influenza Type A Antigen Screen - Final Nasal, Unspecified NEGATIVE INFLUENZA A VIRUS AG REFERENCE RANGE: NEGATIVE Influenza Type B Antigen Screen - Final NEGATIVE INFLUENZA B VIRUS AG REFERENCE RANGE: NEGATIVE Med Orders - Current: Current Medications Albuterol/Ipratropium (Combivent Respimat) 0 gm INH Q4H PRN PRN Reason: Dyspnea Dexamethasone (Decadron) 6 mg IVPUSH DAILY [facility] Last Admin: 01/22/20 09:09 Dose: 6 mg Documented by: Doxycycline Monohydrate (Doxycycline Monohydrate) 100 mg PO BID [facility] Last Admin: 01/22/20 07:35 Dose: 100 mg Documented by: Famotidine (Pepcid) 20 mg IVPUSH Q12H [facility] Guaifenesin/Dextromethorphan (Mucinex Dm Er 600-30 Mg) 1 tab PO BID [facility] Last Admin: 01/22/20 07:35 Dose: 1 tab Documented by: Heparin Sodium (Porcine) (Heparin Sodium) 5,000 units SUBCUT Q8H [facility] Last Admin: 01/22/20 07:35 Dose: 5,000 units Documented by: Remdesivir 200 mg/ Sodium (Chloride) 290 mls @ 290 mls/hr IV ONETIME ONE Stop: 01/22/20 09:50 Remdesivir 100 mg/ Sodium (Chloride) 270 mls @ 270 mls/hr IV Q24H [facility] Stop: 01/26/20 10:01 Lisinopril (Prinivil) 10 mg PO QPM [facility] Sodium Chloride (Saline Flush) 10 ml FLUSH ASDIRECTED PRN PRN Reason: Keep Vein Open Last Admin: 01/21/20 23:14 Dose: 10 ml Documented by: Sodium Chloride (Saline Flush) 10 ml FLUSH Q12HR PRN PRN Reason: Keep Vein Open Temazepam (Restoril) 15 mg PO BEDTIME PRN PRN Reason: Insomnia Triamterene/HCTZ (Maxzide 50-75 Mg) 0.5 each PO DAILY [facility] Last Admin: 01/22/20 07:35 Dose: 0.5 each Documented by: Discontinued Medications Acetaminophen (Tylenol) 650 mg PO NOW ONE Stop: 01/22/20 00:30 Last Admin: 01/22/20 00:31 Dose: 650 mg Documented by: Famotidine (Pepcid) 40 mg IVPUSH ONETIME ONE Stop: 01/21/20 22:47 Last Admin: 01/21/20 23:12 Dose: 40 mg Documented by: Ceftriaxone Sodium 1 gm/ (Sodium Chloride) 100 mls @ 200 mls/hr IV ONETIME ONE Stop: 11/04/20 00:30 Last Admin: 01/22/20 00:12 Dose: 200 mls/hr Documented by: Iopamidol (Isovue-370 (76%)) 100 ml IVPUSH ONETIME STA Stop: 01/22/20 07:43 Lisinopril (Prinivil) 10 mg PO ONETIME ONE Stop: 01/22/20 00:37 Last Admin: 01/22/20 01:33 Dose: 10 mg Documented by: Ticagrelor (Brilinta) 180 mg PO ONETIME ONE Stop: 01/21/20 22:47 Last Admin: 01/21/20 23:11 Dose: 180 mg Documented by: - Exam Quality Assessment: Supplemental Oxygen, DVT Prophylaxis (Subcutaneous heparin). No: Central Line/PICC, Urine Catheter, Skin Breakdown, Restraints General: Alert, Oriented, Cooperative, No Acute Distress HEENT: Pupils Equal, Pupils Reactive, EOMI, Mucous Membr. Moist/[place]. No: Scleral Icterus Neck: Supple, Trachea Midline, No JVD, No Thyromegaly, +2 Carotid Pulse wo Bruit. No: Lymphadenopathy Lungs: Normal Respiratory Effort, Rales (Persistent mild diffuse bilateral rales particularly at the bases left greater than right). No: Rhonchi, Rub, Stridor, Wheezing Cardiovascular: Regular Rate, Regular Rhythm, No Murmurs. No: Gallops, Rubs GI/Abdominal Exam: Normal Bowel Sounds, Soft, Non-Tender, No Organomegaly, No Distention, No Abnormal Bruit, No Mass, Other (Obese). No: Guarding (Female) Exam: Deferred Back Exam: Normal Inspection, Full Range of Motion. No: CVA Tenderness (L), CVA Tenderness (R), Muscle Spasm Extremities: Normal Inspection, Normal Range of Motion, Non-Tender, No Pedal Edema, Normal Capillary Refill. No: [place]'s Sign Peripheral Pulses: 2+: Radial (L), Radial (R), Dorsalis Pedis (L), Dorsalis Pedis (R) Skin: Warm, Dry, Intact. No: Rash, Ecchymosis Neurological: No New Focal Deficit, Other (No clinical orthostasis. Stable generalized weakness. No gross deficits including negative Babinski's.) Psy/Mental Status: Alert, Normal Affect, Normal Mood. No: Agitated, Hallucinations, Withdrawal Symptoms #1 Interpretation EKG Date: 01/22/20 Time: 10:45 Rhythm: NSR Rate (Beats/Min): 79 [place]: Normal (Left cardiac axis) P-Wave: Present QRS: Wide (0.10 seconds representing repolarization changes) ST-T: Normal (T wave inversion lead V1 with resolution of T wave inversions in leads V2 and V3) QT: Normal MS/PQ Interval: 0.18 seconds. Poor R wave progression in the anterior leads with resolution of previous borderline short MS interval Comparison: Change From Previous EKG (As above since 01/21/2020.) EKG Interpretation Comments: 1. No acute ischemic changes with resolution of previous borderline anterior wall ischemia 2. Repolarization changes Sepsis Event Note - Evaluation Sepsis Screening Result: No Definite Risk - Focused Exam Vital Signs: Vital Signs Temp Pulse Resp BP BP Pulse Ox Pulse Ox 01/22/20 07:37 37.4 C 79 20 126/76 94 L 01/22/20 05:48 37.4 C 70 20 117/75 90 L 01/22/20 04:00 37.1 C 75 12 120/75 96 01/22/20 02:00 37.4 C 78 20 176/84 H 96 01/22/20 01:33 195/92 H 01/22/20 00:33 38.8 C H 90 21 H 195/99 H 96 01/22/20 00:13 88 21 H 182/95 H 94 L 01/21/20 22:47 38.2 C H 91 14 146/78 H 96 93 L 01/21/20 22:44 37.4 C 98 21 H 137/79 89 L - Problem List & Annotations (1) Pneumonia SNOMED Code(s): 499890351 Code(s): J18.9 - PNEUMONIA, UNSPECIFIED ORGANISM Status: Acute Priority: High Current Visit: Yes Onset Date: 01/22/20 Qualifiers: Pneumonia type: due to unspecified organism Laterality: bilateral Lung location: unspecified part of lung Qualified Code(s): J18.9 - Pneumonia, unspecified organism Annotation/Comment:: Lactic acid level is normal with no significant leukocytosis. Blood cultures x2 were collected. COVID-19 rapid test was also c ollected on admission with positive test results this morning. Secondary to progressive/new O2 requirements patient was started on IV Decadron and IV remdesivir on 01/21. She was counseled extensively concerning the experimental nature of this medical therapy, risk and benefits, etc. and was provided extensive written information, which she did sign and acknowledge. Note significant exposure and her being hospitalized in this facility for bilateral pneumonia, hypoxia, and COVID-19 with subsequent transfer of her to [facility] on 01/21. IV Rocephin initiated in the emergency room with additional initiation of oral doxycycline in the a.m. Combivent therapy as needed with additional incentive spirometry initiated. Additional treatment of COVID-19 per guidelines initiated on 01/21 as above. She is not a candidate for convalescent plasma, which is not available in this facility, to this point, however low threshold for transfer to [facility] depending on her clinical course. Initially at time of arrival in the emergency room the patient was only 85 to 87% after minimal exertion on room air however significantly proved O2 sats in the 95th percentile on room air at rest prior to admission without treatment. Isolation precautions initiated. (2) COVID-19 SNOMED Code(s): 409086603 Code(s): U07.1 - COVID-19 Status: Acute Priority: High Current Visit: Yes Onset Date: ~01/21/20 Annotation/Comment:: As above. (3) D-dimer, elevated SNOMED Code(s): 355297376 Code(s): R79.89 - OTHER SPECIFIED ABNORMAL FINDINGS OF BLOOD CHEMISTRY Status: Acute Priority: High Current Visit: Yes Onset Date: 01/22/20 Annotation/Comment:: Venous Doppler studies of the lower extremities bilaterally and CTA of the chest using PE protocol in the a.m. of 01/22/2020 were both negative for DVT and/or PE. Subcutaneous heparin therapy initiated on admission as treatment both for her D-dimer elevation and COVID-19. Note that sodium heparin therapy has a better anti-inflammatory effect for COVID-19 in comparison to Lovenox based on studies. (4) Peptic reflux disease SNOMED Code(s): 989008932 Code(s): K21.9 - GASTRO-ESOPHAGEAL REFLUX DISEASE WITHOUT ESOPHAGITIS Status: Acute Priority: Medium Current Visit: Yes Onset Date: 01/21/20 Annotation/Comment:: High-dose IV Pepcid given in the emergency room. Observe for now. Continue IV Pepcid therapy secondary to her COVID-19 and his GI prophylaxis secondary to her IV Decadron therapy. (5) Osteoarthritis SNOMED Code(s): 407286618 Code(s): M19.90 - UNSPECIFIED OSTEOARTHRITIS, UNSPECIFIED SITE Status: Chronic Priority: Medium Current Visit: Yes Qualifiers: Osteoarthritis location: multiple joints Osteoarthritis type: primary Qualified Code(s): M89.49 - Other hypertrophic osteoarthropathy, multiple sites Annotation/Comment:: Stable by history. (6) Hypertension SNOMED Code(s): 91546460 Code(s): I10 - ESSENTIAL (PRIMARY) HYPERTENSION Status: Chronic Priority: Medium Current Visit: Yes Qualifiers: Hypertension type: essential hypertension Qualified Code(s): I10 - Essential (primary) hypertension Annotation/Comment:: Moderate control in the emergency room however improved after initiation of lisinopril shortly after admission. Continue this therapy both for treatment of her hypertension and COVID-19. Continue to observe closely. - Problem List Review Problem List Initiated/Reviewed/Updated: Yes - My Orders Last 24 Hours: My Active Orders 01/21/20 22:46 Sodium Chloride 0.9% [Saline Flush] 10 ml FLUSH ASDIRECTED PRN Resuscitation Status Stat 01/21/20 22:47 Cardiac Monitoring [RC] Q2HR Peripheral IV Care [RC] Chest 1V Frontal [CR] Stat Peripheral IV Insertion Adult [OM.PC] Stat EKG 12 Lead [EK] Stat 01/21/20 22:48 CULTURE STREP A CONFIRMATION [RM] Stat STREP SCRN A RAPID W CULT CONF [RM] Stat 01/21/20 22:49 CORONAVIRUS COVID-19 ROSINA [MOLEC] Stat Isolation [COMM] Routine 01/21/20 23:00 CULTURE BLOOD [BC] Stat 01/21/20 23:10 CULTURE BLOOD [BC] Stat 01/21/20 23:41 Blood Culture x2 Reflex Set [OM.PC] Urgent 01/22/20 00:00 Heparin Sodium 5,000 units SUBCUT Q8H 01/22/20 00:33 Antiembolic Devices [RC] 08,20 Communication Order [RC] PER UNIT ROUTINE Communication, Vaccine [RC] 08,20 Height and Weight [RC] DAILY Intake and Output Strict [RC] 06,18 Oxygen Therapy [RC] 2300 Pulse Oximetry [RC] .PRN Up With Assistance [RC] ASDIRECTED Vaccines to be Administered [RC] .DISCHARGE Sodium Chloride 0.9% [Saline Flush] 10 ml FLUSH Q12HR PRN Temazepam [Restoril] 15 mg PO BEDTIME PRN Antiembolic Hose [OM.PC] Routine DVT/VTE Prophylaxis Reflex [OM.PC] Routine GM Immunization Reflex [OM.PC] Click to Edit 01/22/20 00:38 Albuterol/Ipratropium [Combivent Respimat] See Dose Instructions INH Q4H PRN 01/22/20 00:39 RT Post Treatment Assessment [RC] Click to Edit RT Pre-Treatment Assessment [RC] Click to Edit CULTURE SPUTUM + SMEAR [RM] Routine 01/22/20 00:40 RT Incentive Spirometry [RC] Q2HWA 01/22/20 00:45 H PYLORI STOOL ANTIGEN [MREF] ONETIME 01/22/20 00:55 Communication Order [RC] ROUTINE 01/22/20 05:11 EKG Documentation Completion [RC] ASDIRECTED Chest PE [Ang Chest] [CT] Stat Venous Doppler Lwr Ext Bi [US] Urgent 01/22/20 Breakfast Heart Healthy Diet [DIET] 01/22/20 08:00 Dextromethorphan/guaiFENesin [Mucinex DM ER 600-30 MG] 1 tab PO BID Doxycycline Monohydrate 100 mg PO BID HCTZ/Triamterene [Maxzide 50-75 MG] 0.5 each PO DAILY 01/22/20 08:51 Vital Signs [RC] Q4HR 01/22/20 08:57 EKG Documentation Completion [RC] ASDIRECTED 01/22/20 09:00 dexAMETHasone [Decadron] 6 mg IVPUSH DAILY 01/22/20 09:49 Remdesivir (Eua) [Remdesivir (EUA)] 200 mg Sodium Chloride 0.9% [Normal Saline] 250 ml IV ONETIME 01/22/20 18:00 Famotidine [Pepcid] 20 mg IVPUSH Q12H lisinopriL [Prinivil] 10 mg PO QPM 01/23/20 05:11 Chest 1V Frontal [CR] Routine CBC WITH AUTO DIFF [HEME] Routine CK W CKMB [CHEM] Routine COMPREHENSIVE METABOLIC PN,CMP [CHEM] Routine D-DIMER QUANTITATIVE [COAG] Routine PRO B-TYPE NATRIUR PEPT,BNPPRO [CHEM] Routine TROPONIN I [CHEM] Routine EKG 12 Lead [EK] Routine 01/23/20 10:00 Remdesivir (Eua) [Remdesivir (EUA)] 100 mg Sodium Chloride 0.9% [Normal Saline] 250 ml IV Q24H - Assessment Assessment:: As above - Plan Plan:: As above. Extensive precautions were given to the patient, who is in agreement with the treatment plan. The patient will require about 3-4 days of inpatient/acute care secondary to multiple health problems as above.
[2020-01-22] MEDS: Sodium Chloride 0.9% 10 ML Syringe FLUSH PRN ×2 (10:33→17:30)
[2020-01-22] MEDS: Famotidine 20 MG/2 ML SDV IVPUSH SCH (17:29)
[2020-01-22] MEDS: Lisinopril 10 MG Tab PO SCH (17:30)
[2020-01-23] MEDS: Heparin Sodium 5,000 Units/ML Vial SUBCUT SCH ×3 (00:36→17:41)
[2020-01-23 09:08] LABS: CHLORIDE,CL 103 mmol/L (98-107); SODIUM,NA 140 mmol/L (136-145)
[2020-01-23] MEDS: Dexamethasone 10 MG/ML SDV IVPUSH SCH (09:38)
[2020-01-23] MEDS: Sodium Chloride 0.9% 10 ML Syringe FLUSH PRN ×2 (09:38→09:56)
[2020-01-23] MEDS ORDERED: Albuterol/Ipratropium 4 GM Inhalation Spray INH PRN (09:40)
[2020-01-23] MEDS: Famotidine 20 MG/2 ML SDV IVPUSH SCH ×2 (09:40→17:48)
[2020-01-23] MEDS: Hydrochlorothiazide/Triamterene 50-75 MG Tab PO SCH (09:42)
[2020-01-23] MEDS: Dextromethorphan/guaiFENesin 600-30 MG Tab.ER PO SCH ×2 (09:46→17:46)
[2020-01-23] MEDS: Doxycycline Monohydrate 100 MG Cap PO SCH ×2 (09:46→17:44)
--- NOTE | 2020-01-23 10:51 | PCM.PN ---
- General Info Date of Service: 01/23/20 Admission Dx/Problem (Free Text): 1. Pneumonia with probable COVID-19 2. D-dimer elevation 3. Hypertension Functional Status: Reports: Pain Controlled, Tolerating Diet, Ambulating, Urinating, New Symptoms, Incentive Spirometry Pain Score: 0 - Review of Systems General: Reports: Fever, Weakness (Improving), Fatigue (Improving), Chills, Night Sweats. Denies: Malaise, Appetite (Adequate) HEENT: Reports: Post Nasal Drip, Rhinitis. Denies: Dysphasia, Ear Pain, Eye Pain, Headaches, Sinus Congestion, Sore Throat, Visual Changes Pulmonary: Reports: Shortness of Breath, Cough. Denies: Pleuritic Chest Pain, Sputum, Hemoptysis, Wheezing Cardiovascular: Reports: No Symptoms, Dyspnea on Exertion. Denies: Chest Pain, Palpitations, Orthopnea, PND, Edema, Lightheadedness Gastrointestinal: Reports: No Symptoms. Denies: Abdominal Pain, Constipation, Decreased Appetite, Diarrhea (3 loose stools during the last 24 hours), Difficulty Swallowing, Flatus, Hematochezia, Melena, Nausea, Vomiting Genitourinary: Reports: No Symptoms. Denies: Dysuria, Frequency, Burning, Pain, Urgency, Incontinence, Hematuria, Retention, Flank Pain Musculoskeletal: Reports: No Symptoms. Denies: Neck Pain, Shoulder Pain, Arm Pain, Back Pain, Leg Pain Skin: Reports: No Symptoms. Denies: Diaphoresis, Bruising Neurological: Reports: Weakness (As above). Denies: Confusion, Dizziness, Headache, Numbness, Paresthesia, Tingling Psychiatric: Reports: No Symptoms. Denies: Confusion, Depression, Mood Lability, Anxiety (Although the patient is worried about her , who also has COVID-19 and was transferred to [facility] yesterday from this facility), Agitation, Cravings, Hallucinations - Patient Data Vitals - Most Recent: Last Vital Signs Temp 37.1 C 01/23/20 08:00 Pulse 86 01/23/20 08:00 Resp 14 01/23/20 08:00 BP 128/79 01/23/20 08:00 Pulse Ox 93 L 01/23/20 08:00 Vital Signs - 24 hr 01/22/20 01/22/20 01/22/20 12:00 15:53 17:30 Temperature [ Oral] Temperature [ 37.4 C 37.1 C Temporal] Pulse, 89 85 Peripheral [ Pulse Oximetry] Respiratory 20 20 Rate Blood Pressure 130/85 Blood Pressure [Left Upper Arm ] Blood Pressure 128/80 132/80 [Right Upper Arm] O2 Sat by Pulse 92 L 92 L Oximetry 01/22/20 01/23/20 01/23/20 20:00 00:00 04:00 Temperature [ 37.7 C 37.3 C 37.0 C Oral] Temperature [ Temporal] Pulse, 85 77 65 Peripheral [ Pulse Oximetry] Respiratory 18 18 18 Rate Blood Pressure Blood Pressure 124/85 123/78 136/73 [Left Upper Arm ] Blood Pressure [Right Upper Arm] O2 Sat by Pulse 93 L 92 L 94 L Oximetry 01/23/20 08:00 Temperature [ 37.1 C Oral] Temperature [ Temporal] Pulse, 86 Peripheral [ Pulse Oximetry] Respiratory 14 Rate Blood Pressure Blood Pressure [Left Upper Arm ] Blood Pressure 128/79 [Right Upper Arm] O2 Sat by Pulse 93 L Oximetry Weight - Most Recent: 95.254 kg I&O - Last 24 Hours: Intake & Output 01/22/20 01/23/20 01/23/20 22:59 06:59 14:59 Intake Total 750 500 180 Balance 750 500 180 Imaging Impressions - Last 24 Hours: color television console monitor shows average heart rate in the 70s with no ectopy or arrhythmia. Chest x-ray, portable, shows mild cardiomegaly, aortic valve calcification, and proximal aortic arch enlargement with no CHF or pneumothorax. Mild to moderate bilateral lower lobe pulmonary infiltrates particularly in the left lower lobe. Moderate COPD changes. Lab Results Last 24 Hours: Laboratory Results - last 24 hr 01/23/20 01/23/20 01/23/20 Range/Units 07:10 07:10 07:10 WBC 5.5 (4.0-10.2) K/uL RBC 4.75 (3.77-5.09) M/uL Hgb 14.1 (11.7-15.5) g/dL Hct 42.5 (34.0-46.0) % MCV 89.5 (84.0-98.0) fL MCH 29.7 (28.2-33.3) pg MCHC 33.2 (31.7-36.0) g/dL RDW 14.2 H (11.2-14.1) % Plt Count 171 (150-350) K/uL Neut % (Auto) 81.8 H (45.0-80.0) % Lymph % (Auto) 12.5 (10.0-50.0) % [place] % (Auto) 5.7 (2.0-14.0) % Eos % (Auto) 0.0 (0.0-5.0) % Baso % (Auto) 0.0 (0.0-2.0) % Neut # (Auto) 4.46 (1.40-7.00) K/uL Lymph # (Auto) 0.68 (0.50-3.50) K/uL [place] # (Auto) 0.31 (0.00-1.00) K/uL Eos # (Auto) 0.00 (0.00-0.50) K/uL Baso # (Auto) 0.00 (0.00-0.20) K/uL D-Dimer, Quantitative 221 (0-400) ng/mL Sodium 140 (136-145) mmol/L Potassium 3.2 L (3.5-5.1) mmol/L Chloride 103 (98-107) mmol/L Carbon Dioxide 23.7 (21.0-32.0) mmol/L BUN 33 H (7-18) mg/dL Creatinine 0.78 (0.51-1.17) mg/dL Est Cr Clr Drug Dosing 63.84 mL/min Estimated GFR (MDRD) > 60 mL/min Glucose 130 H (74-106) mg/dL Lactic Acid (0.4-2.0) mmol/L Calcium 8.6 (8.5-10.1) mg/dL Total Bilirubin 0.3 (0.2-1.0) mg/dL AST 26 (15-37) U/L ALT 34 (12-78) U/L Alkaline Phosphatase 58 (46-116) IU/L Creatine Kinase 108 (26-308) U/L Creatine Kinase Index 1.1 (0.0-2.5) % CK-MB (CK-2) 1.20 (0.00-3.60) ng/mL Troponin I 0.000 (0.000-0.056) ng/mL NT-Pro-B Natriuret Pep 145 H (0-125) pg/mL Total Protein 7.4 (6.4-8.2) g/dL Albumin 3.2 L (3.4-5.0) g/dL 01/23/20 Range/Units 07:10 WBC (4.0-10.2) K/uL RBC (3.77-5.09) M/uL Hgb (11.7-15.5) g/dL Hct (34.0-46.0) % MCV (84.0-98.0) fL MCH (28.2-33.3) pg MCHC (31.7-36.0) g/dL RDW (11.2-14.1) % Plt Count (150-350) K/uL Neut % (Auto) (45.0-80.0) % Lymph % (Auto) (10.0-50.0) % [place] % (Auto) (2.0-14.0) % Eos % (Auto) (0.0-5.0) % Baso % (Auto) (0.0-2.0) % Neut # (Auto) (1.40-7.00) K/uL Lymph # (Auto) (0.50-3.50) K/uL [place] # (Auto) (0.00-1.00) K/uL Eos # (Auto) (0.00-0.50) K/uL Baso # (Auto) (0.00-0.20) K/uL D-Dimer, Quantitative (0-400) ng/mL Sodium (136-145) mmol/L Potassium (3.5-5.1) mmol/L Chloride (98-107) mmol/L Carbon Dioxide (21.0-32.0) mmol/L BUN (7-18) mg/dL Creatinine (0.51-1.17) mg/dL Est Cr Clr Drug Dosing mL/min Estimated GFR (MDRD) mL/min Glucose (74-106) mg/dL Lactic Acid 1.1 (0.4-2.0) mmol/L Calcium (8.5-10.1) mg/dL Total Bilirubin (0.2-1.0) mg/dL AST (15-37) U/L ALT (12-78) U/L Alkaline Phosphatase (46-116) IU/L Creatine Kinase (26-308) U/L Creatine Kinase Index (0.0-2.5) % CK-MB (CK-2) (0.00-3.60) ng/mL Troponin I (0.000-0.056) ng/mL NT-Pro-B Natriuret Pep (0-125) pg/mL Total Protein (6.4-8.2) g/dL Albumin (3.4-5.0) g/dL Chucky Results Last 24 Hours: Microbiology 01/21/20 22:48 Quick Strep Confirmation Culture - Final Throat NO GROUP A STREP ISOLATED REFERENCE RANGE: NEGATIVE Group A Streptococcus Rapid Screen - Final NEGATIVE STREP A SCREEN REFERENCE RANGE: NEGATIVE 01/21/20 23:10 Aerobic Blood Culture - Preliminary Blood - Venous - Lab Draw NO GROWTH AFTER 1 DAY Anaerobic Blood Culture - Preliminary NO GROWTH AFTER 1 DAY 01/21/20 23:00 Aerobic Blood Culture - Preliminary Blood - Venous NO GROWTH AFTER 1 DAY Anaerobic Blood Culture - Preliminary NO GROWTH AFTER 1 DAY 01/22/20 00:33 Stool Occult Blood (CHUCKY) - Final Stool / Feces NEGATIVE OCCULT BLOOD REFERENCE RANGE: NEGATIVE Med Orders - Current: Current Medications Albuterol/Ipratropium (Combivent Respimat) 0 gm INH Q4H PRN PRN Reason: Dyspnea Albuterol/Ipratropium (Combivent Respimat) 0 gm INH QID KELLY Albuterol/Ipratropium (Combivent Respimat) 0 gm INH Q4H PRN PRN Reason: Dyspnea Dexamethasone (Decadron) 6 mg IVPUSH DAILY [facility] Last Admin: 01/23/20 09:38 Dose: 6 mg Documented by: Doxycycline Monohydrate (Doxycycline Monohydrate) 100 mg PO BID [facility] Last Admin: 01/23/20 09:46 Dose: 100 mg Documented by: Famotidine (Pepcid) 20 mg IVPUSH BID@0800,1800 [facility] Last Admin: 01/23/20 09:40 Dose: 20 mg Documented by: Guaifenesin/Dextromethorphan (Mucinex Dm Er 600-30 Mg) 1 tab PO BID [facility] Last Admin: 01/23/20 09:46 Dose: 1 tab Documented by: Heparin Sodium (Porcine) (Heparin Sodium) 5,000 units SUBCUT Q8H [facility] Last Admin: 01/23/20 09:41 Dose: 5,000 units Documented by: Remdesivir 100 mg/ Sodium (Chloride) 270 mls @ 270 mls/hr IV Q24H KELLY Stop: 01/26/20 08:59 Last Admin: 01/23/20 09:47 Dose: 270 mls/hr Documented by: Lisinopril (Prinivil) 10 mg PO QPM KELLY Last Admin: 01/22/20 17:30 Dose: 10 mg Documented by: Sodium Chloride (Saline Flush) 10 ml FLUSH ASDIRECTED PRN PRN Reason: Keep Vein Open Last Admin: 01/23/20 09:56 Dose: 10 ml Documented by: Sodium Chloride (Saline Flush) 10 ml FLUSH Q12HR PRN PRN Reason: Keep Vein Open Temazepam (Restoril) 15 mg PO BEDTIME PRN PRN Reason: Insomnia Triamterene/HCTZ (Maxzide 50-75 Mg) 0.5 each PO DAILY KELLY Last Admin: 01/23/20 09:42 Dose: 0.5 each Documented by: Discontinued Medications Acetaminophen (Tylenol) 650 mg PO NOW ONE Stop: 01/22/20 00:30 Last Admin: 01/22/20 00:31 Dose: 650 mg Documented by: Famotidine (Pepcid) 40 mg IVPUSH ONETIME ONE Stop: 01/21/20 22:47 Last Admin: 01/21/20 23:12 Dose: 40 mg Documented by: Ceftriaxone Sodium 1 gm/ (Sodium Chloride) 100 mls @ 200 mls/hr IV ONETIME ONE Stop: 01/22/20 00:30 Last Admin: 01/22/20 00:12 Dose: 200 mls/hr Documented by: Remdesivir 200 mg/ Sodium (Chloride) 290 mls @ 290 mls/hr IV ONETIME ONE Stop: 01/22/20 09:50 Last Admin: 01/22/20 10:32 Dose: 290 mls/hr Documented by: Iopamidol (Isovue-370 (76%)) 100 ml IVPUSH ONETIME STA Stop: 01/22/20 07:43 Last Admin: 01/22/20 12:48 Dose: 100 ml Documented by: Lisinopril (Prinivil) 10 mg PO ONETIME ONE Stop: 01/22/20 00:37 Last Admin: 01/22/20 01:33 Dose: 10 mg Documented by: Ticagrelor (Brilinta) 180 mg PO ONETIME ONE Stop: 01/21/20 22:47 Last Admin: 01/21/20 23:11 Dose: 180 mg Documented by: - Exam Quality Assessment: DVT Prophylaxis (Subcutaneous heparin). No: Supplemental Oxygen (No longer required), Central Line/PICC, Urine Catheter, Skin Breakdown, Restraints General: Alert, Oriented, Cooperative, No Acute Distress HEENT: Pupils Equal, Pupils Reactive, EOMI, Mucous Membr. Moist/[place]. No: Scleral Icterus Neck: Supple, Trachea Midline, No JVD, No Thyromegaly, +2 Carotid Pulse wo Bruit Lungs: Normal Respiratory Effort, Rales (Somewhat increased moderate bilateral basilar rales). No: Rhonchi, Rub, Wheezing Cardiovascular: Regular Rate, Regular Rhythm, No Murmurs. No: Gallops, Rubs GI/Abdominal Exam: Normal Bowel Sounds, Soft, Non-Tender, No Organomegaly, No Distention, No Abnormal Bruit, No Mass, Other (Obese). No: Guarding (Female) Exam: Deferred Back Exam: Normal Inspection, Full Range of Motion. No: CVA Tenderness (L), CVA Tenderness (R), Muscle Spasm Extremities: Normal Inspection, Normal Range of Motion, Non-Tender, No Pedal Edema, Normal Capillary Refill. No: Jes[place]'s Sign Peripheral Pulses: 2+: Radial (L), Radial (R), Dorsalis Pedis (L), Dorsalis Pedis (R) Skin: Warm, Dry, Intact. No: Ecchymosis Neurological: No New Focal Deficit Psy/Mental Status: Alert, Normal Affect, Normal Mood. No: Agitated, Hallucinations, Withdrawal Symptoms #1 Interpretation EKG Date: 01/23/20 Time: 09:18 Rhythm: NSR Rate (Beats/Min): 73 [place]: Normal (Left cardiac axis) P-Wave: Enlarged (Mild diffuse biphasic P waves) QRS: Wide (0.10 seconds representing repolarization changes) ST-T: Other (Improved T wave inversions/nonspecific ST changes in leads V1 through V3 with no significant cardiac ischemia) QT: Normal MO/PQ Interval: 0.17 seconds with poor R wave progression in the anterior leads Comparison: Change From Previous EKG (As above since 01/22/2020) EKG Interpretation Comments: 1. Borderline anterior wall ischemia?, Improved 2. Left atrial enlargement 3. Repolarization changes Sepsis Event Note - Evaluation Sepsis Screening Result: No Definite Risk - Focused Exam Vital Signs: Vital Signs Temp Pulse Resp BP BP Pulse Ox 01/23/20 08:00 37.1 C 86 14 128/79 93 L 01/23/20 04:00 37.0 C 65 18 136/73 94 L 01/23/20 00:00 37.3 C 77 18 123/78 92 L - Problem List & Annotations (1) Pneumonia SNOMED Code(s): 065100489 Code(s): J18.9 - PNEUMONIA, UNSPECIFIED ORGANISM Status: Acute Priority: High Current Visit: Yes Onset Date: 01/22/20 Qualifiers: Pneumonia type: due to unspecified organism Laterality: bilateral Lung location: unspecified part of lung Qualified Code(s): J18.9 - Pneumonia, unspecified organism Annotation/Comment:: Secondary to persistent fever her lactic acid level will be repeated on 01/23. Lactic acid level was normal with no significant leukocytosis. Blood cultures x2 were collected. COVID-19 rapid test was also collected on admission with positive test results on 01/21. Secondary to progressive/new O2 requirements patient was started on IV Decadron and IV remdesivir on 01/21. The patient is no longer O2 dependent on 01/22. She was counseled extensively concerning the experimental nature of this medical therapy, risk and benefits, etc. and was provided extensive written information, which she did sign and acknowledge. Note significant exposure and her being hospitalized in this facility for bilateral pneumonia, hypoxia, and COVID- 19 with subsequent transfer of her to [place] on 01/21. Emotional support was provided to the patient concerning her 's illness, although he does seem to be improving on 01/22 after initiation of IV convalescent serum. IV Rocephin initiated in the emergency room with additional initiation of oral doxycycline in the a.m. Combivent therapy was initiated on 01/22 with additional incentive spirometry. Additional treatment of COVID-19 per guidelines initiated on 01/21 as above. She is not a candidate for convalescent plasma, which is not available in this facility, to this point, however low threshold for transfer to [place] depending on her clinical course. Despite progressive lower lobe pulmonary infiltrates on 01/22 she has improved clinically. Initially at time of arrival in the emergency room the patient was only 85 to 87% after minimal exertion on room air however significantly proved O2 sats in the 95th percentile on room air at rest prior to admission without treatment. Isolation precautions initiated on admission. Note the patient's O2 saturations were between 92-94% on 2 L/min by nasal cannula during early phases of this hospitalization with no O2 requirement at rest as of 01/22 AM. BNP improved on 01/22 with no chest pain, anginal complaints, or clinical evidence of significant CHF. Otherwise normal cardiac enzymes with questionable anterior wall changes by EKG. (2) COVID-19 SNOMED Code(s): 612744395 Code(s): U07.1 - COVID-19 Status: Acute Priority: High Current Visit: Yes Onset Date: ~01/21/20 Annotation/Comment:: As above. (3) D-dimer, elevated SNOMED Code(s): 982897309 Code(s): R79.89 - OTHER SPECIFIED ABNORMAL FINDINGS OF BLOOD CHEMISTRY Status: Acute Priority: High Current Visit: Yes Onset Date: 01/22/20 Annotation/Comment:: Venous Doppler studies of the lower extremities bilaterally and CTA of the chest using PE protocol in the a.m. of 01/22/2020 were both negative for DVT and/or PE. Subcutaneous heparin therapy initiated on admission as treatment both for her D-dimer elevation and COVID-19. Note that sodium heparin therapy has a better anti-inflammatory effect for COVID-19 in comparison to Lovenox based on studies. D-dimer normal on 01/22 with continuation of subcutaneous heparin for now. Consider Eliquis therapy at discharge secondary to initial D-dimer elevation, current COVID-19 infection, etc. with risks/ benefits to be discussed if this therapy is initiated. (4) Peptic reflux disease SNOMED Code(s): 640920235 Code(s): K21.9 - GASTRO-ESOPHAGEAL REFLUX DISEASE WITHOUT ESOPHAGITIS Status: Acute Priority: Medium Current Visit: Yes Onset Date: 01/21/20 Annotation/Comment:: High-dose IV Pepcid given in the emergency room. Observe for now. Continue IV Pepcid therapy secondary to her COVID-19 and his GI prophylaxis secondary to her IV Decadron therapy. (5) Osteoarthritis SNOMED Code(s): 909204627 Code(s): M19.90 - UNSPECIFIED OSTEOARTHRITIS, UNSPECIFIED SITE Status: Chronic Priority: Medium Current Visit: Yes Qualifiers: Osteoarthritis location: multiple joints Osteoarthritis type: primary Qualified Code(s): M89.49 - Other hypertrophic osteoarthropathy, multiple sites Annotation/Comment:: Stable by history. (6) Hypertension SNOMED Code(s): 37164961 Code(s): I10 - ESSENTIAL (PRIMARY) HYPERTENSION Status: Chronic Priority: Medium Current Visit: Yes Qualifiers: Hypertension type: essential hypertension Qualified Code(s): I10 - Essential (primary) hypertension Annotation/Comment:: Moderate control in the emergency room however improved after initiation of lisinopril shortly after admission. Continue this therapy both for treatment of her hypertension and COVID-19. Continue to observe closely. (7) Hypokalemia SNOMED Code(s): 00920972 Code(s): E87.6 - HYPOKALEMIA Status: Acute Priority: Medium Current Visit: Yes Onset Date: 01/23/20 Annotation/Comment:: Mild hypokalemia likely secondary to her mild diarrhea. No evidence of C. difficile. Some diarrhea was present prior to patient's admission and initiation of the antibiotics as above. Oral potassium chloride therapy was initiated on 01/22, although this may not be required at discharge. (8) Hypoalbuminemia SNOMED Code(s): 719124076 Code(s): E88.09 - H DISORDERS OF PLASMA-PROTEIN METABOLISM, NEC Status: Acute Priority: Medium Current Visit: Yes Onset Date: 01/23/20 Annotation/Comment:: Observe for now. - Problem List Review Problem List Initiated/Reviewed/Updated: Yes - My Orders Last 24 Hours: My Active Orders 01/22/20 18:00 Famotidine [Pepcid] 20 mg IVPUSH BID@0800,1800 lisinopriL [Prinivil] 10 mg PO QPM 01/23/20 05:11 Chest 1V Frontal [CR] Routine 01/23/20 08:00 Remdesivir (Eua) [Remdesivir (EUA)] 100 mg Sodium Chloride 0.9% [Normal Saline] 250 ml IV Q24H 01/23/20 08:33 Vital Signs [RC] Q6HR 01/23/20 09:39 RT Post Treatment Assessment [RC] Click to Edit RT Pre-Treatment Assessment [RC] Click to Edit 01/23/20 09:40 RT Incentive Spirometry [RC] ASDIRECTED RT Post Treatment Assessment [RC] Click to Edit RT Pre-Treatment Assessment [RC] Click to Edit Albuterol/Ipratropium [Combivent Respimat] See Dose Instructions INH Q4H PRN 01/23/20 12:00 Albuterol/Ipratropium [Combivent Respimat] See Dose Instructions INH QID 01/24/20 05:11 CBC WITH AUTO DIFF [HEME] DAILY COMPREHENSIVE METABOLIC PN,CMP [CHEM] DAILY INR,PT,PROTHROMBIN TIME [COAG] Routine PTT,PARTIAL THROMBOPLSTIN TIME [COAG] Routine 01/25/20 05:11 CBC WITH AUTO DIFF [HEME] DAILY COMPREHENSIVE METABOLIC PN,CMP [CHEM] DAILY 01/26/20 05:11 CBC WITH AUTO DIFF [HEME] DAILY COMPREHENSIVE METABOLIC PN,CMP [CHEM] DAILY - Assessment Assessment:: As above - Plan Plan:: As above. Extensive precautions were given to the patient, who is in agreement with the treatment plan. The patient will require about 3-4 days of inpatient/acute care secondary to multiple health problems as above. Tad monet physician assumes care in the a.m.
[2020-01-23] MEDS: Albuterol/Ipratropium 4 GM Inhalation Spray INH SCH ×3 (11:21→20:25)
[2020-01-23] MEDS: Potassium Chloride 20 MEQ Tab.ER PO SCH ×2 (11:31→17:45)
[2020-01-23] MEDS: Lisinopril 10 MG Tab PO SCH (17:47)
[2020-01-23] MEDS ORDERED: Acetaminophen 325 MG Tab PO PRN (19:55)
[2020-01-23] MEDS ORDERED: Acetaminophen 325 MG Tab ONE (20:17)
[2020-01-23] MEDS: Temazepam 15 MG Cap PO PRN (20:36)
[2020-01-24] MEDS: Heparin Sodium 5,000 Units/ML Vial SUBCUT SCH ×3 (00:46→16:19)
[2020-01-24 07:48] LABS: CHLORIDE,CL 104 mmol/L (98-107); SODIUM,NA 139 mmol/L (136-145)
[2020-01-24 07:48] LABS: PTT,PARTIAL THROMBOPLSTIN TIME 29.4 SEC (24.5-32.8)
[2020-01-24] MEDS: Albuterol/Ipratropium 4 GM Inhalation Spray INH SCH ×4 (09:10→20:35)
[2020-01-24] MEDS: Dexamethasone 10 MG/ML SDV IVPUSH SCH (09:11)
[2020-01-24] MEDS: Sodium Chloride 0.9% 10 ML Syringe FLUSH PRN ×3 (09:12→18:14)
[2020-01-24] MEDS: Famotidine 20 MG/2 ML SDV IVPUSH SCH ×2 (09:16→18:10)
[2020-01-24] MEDS: Potassium Chloride 20 MEQ Tab.ER PO SCH ×2 (09:27→18:07)
[2020-01-24] MEDS: Dextromethorphan/guaiFENesin 600-30 MG Tab.ER PO SCH ×2 (09:28→18:08)
[2020-01-24] MEDS: Hydrochlorothiazide/Triamterene 50-75 MG Tab PO SCH (09:29)
[2020-01-24] MEDS: Doxycycline Monohydrate 100 MG Cap PO SCH ×2 (09:30→18:07)
[2020-01-24] MEDS: Lisinopril 10 MG Tab PO SCH (18:08)
--- NOTE | 2020-01-24 18:15 | PCM.PN ---
- General Info Date of Service: 01/24/20 Admission Dx/Problem (Free Text): 1. COVID-19 2. D-dimer elevation 3. Hypertension Subjective Update: Patient is feeling better. Still with cough. SOB has improved. Still fatigued. Functional Status: Reports: Pain Controlled, Tolerating Diet, Ambulating, Urinating, Incentive Spirometry. Denies: New Symptoms - Review of Systems General: Reports: Fatigue HEENT: Reports: Sinus Congestion, Rhinitis. Denies: Sore Throat Pulmonary: Reports: Shortness of Breath, Cough, Sputum. Denies: Hemoptysis, Wheezing Cardiovascular: Denies: Chest Pain, Lightheadedness Gastrointestinal: Reports: No Symptoms Genitourinary: Reports: No Symptoms Musculoskeletal: Reports: Other (no acute changes) Skin: Reports: No Symptoms Neurological: Denies: Confusion, Dizziness, Headache, Change in Speech Psychiatric: Reports: No Symptoms - Patient Data Vitals - Most Recent: Last Vital Signs Temp 36.6 C 01/24/20 14:00 Pulse 78 01/24/20 14:00 Resp 20 01/24/20 14:00 BP 150/78 H 01/24/20 14:00 Pulse Ox 92 L 01/24/20 14:00 Weight - Most Recent: 95.254 kg I&O - Last 24 Hours: Intake & Output 01/24/20 01/24/20 01/24/20 06:59 14:59 22:59 Intake Total 1930 Output Total 400 700 Balance -400 1230 Lab Results Last 24 Hours: Laboratory Results - last 24 hr 01/24/20 01/24/20 01/24/20 Range/Units 07:00 07:00 07:10 WBC 6.7 (4.0-10.2) K/uL RBC 4.69 (3.77-5.09) M/uL Hgb 13.9 (11.7-15.5) g/dL Hct 42.6 (34.0-46.0) % MCV 90.8 (84.0-98.0) fL MCH 29.6 (28.2-33.3) pg MCHC 32.6 (31.7-36.0) g/dL RDW 14.5 H (11.2-14.1) % Plt Count 213 (150-350) K/uL Neut % (Auto) 81.8 H (45.0-80.0) % Lymph % (Auto) 11.9 (10.0-50.0) % [place] % (Auto) 6.3 (2.0-14.0) % Eos % (Auto) 0.0 (0.0-5.0) % Baso % (Auto) 0.0 (0.0-2.0) % Neut # (Auto) 5.45 (1.40-7.00) K/uL Lymph # (Auto) 0.79 (0.50-3.50) K/uL [place] # (Auto) 0.42 (0.00-1.00) K/uL Eos # (Auto) 0.00 (0.00-0.50) K/uL Baso # (Auto) 0.00 (0.00-0.20) K/uL PT 10.1 (9.5-12.0) SEC INR 1.0 APTT 29.4 (24.5-32.8) SEC Sodium (136-145) mmol/L Potassium (3.5-5.1) mmol/L Chloride (98-107) mmol/L Carbon Dioxide (21.0-32.0) mmol/L BUN (7-18) mg/dL Creatinine (0.51-1.17) mg/dL Est Cr Clr Drug Dosing mL/min Estimated GFR (MDRD) mL/min Glucose (74-106) mg/dL Lactic Acid 1.4 (0.4-2.0) mmol/L Calcium (8.5-10.1) mg/dL Total Bilirubin (0.2-1.0) mg/dL AST (15-37) U/L ALT (12-78) U/L Alkaline Phosphatase (46-116) IU/L C-Reactive Protein (<=0.9) mg/dL Total Protein (6.4-8.2) g/dL Albumin (3.4-5.0) g/dL 01/24/20 Range/Units 07:10 WBC (4.0-10.2) K/uL RBC (3.77-5.09) M/uL Hgb (11.7-15.5) g/dL Hct (34.0-46.0) % MCV (84.0-98.0) fL MCH (28.2-33.3) pg MCHC (31.7-36.0) g/dL RDW (11.2-14.1) % Plt Count (150-350) K/uL Neut % (Auto) (45.0-80.0) % Lymph % (Auto) (10.0-50.0) % [place] % (Auto) (2.0-14.0) % Eos % (Auto) (0.0-5.0) % Baso % (Auto) (0.0-2.0) % Neut # (Auto) (1.40-7.00) K/uL Lymph # (Auto) (0.50-3.50) K/uL [place] # (Auto) (0.00-1.00) K/uL Eos # (Auto) (0.00-0.50) K/uL Baso # (Auto) (0.00-0.20) K/uL PT (9.5-12.0) SEC INR APTT (24.5-32.8) SEC Sodium 139 (136-145) mmol/L Potassium 3.9 (3.5-5.1) mmol/L Chloride 104 (98-107) mmol/L Carbon Dioxide 24.1 (21.0-32.0) mmol/L BUN 37 H (7-18) mg/dL Creatinine 0.67 (0.51-1.17) mg/dL Est Cr Clr Drug Dosing 74.32 mL/min Estimated GFR (MDRD) > 60 mL/min Glucose 133 H (74-106) mg/dL Lactic Acid (0.4-2.0) mmol/L Calcium 8.6 (8.5-10.1) mg/dL Total Bilirubin 0.2 (0.2-1.0) mg/dL AST 23 (15-37) U/L ALT 30 (12-78) U/L Alkaline Phosphatase 62 (46-116) IU/L C-Reactive Protein 2.2 H (<=0.9) mg/dL Total Protein 7.2 (6.4-8.2) g/dL Albumin 3.2 L (3.4-5.0) g/dL [place] Results Last 24 Hours: Microbiology 01/21/20 23:10 Aerobic Blood Culture - Preliminary Blood - Venous - Lab Draw NO GROWTH AFTER 2 DAYS Anaerobic Blood Culture - Preliminary NO GROWTH AFTER 2 DAYS 01/21/20 23:00 Aerobic Blood Culture - Preliminary Blood - Venous NO GROWTH AFTER 2 DAYS Anaerobic Blood Culture - Preliminary NO GROWTH AFTER 2 DAYS Med Orders - Current: Current Medications Acetaminophen (Tylenol) 650 mg PO Q4H PRN PRN Reason: Pain/Fever Last Admin: 01/23/20 20:23 Dose: 650 mg Documented by: Albuterol/Ipratropium (Combivent Respimat) 0 gm INH Q4H PRN PRN Reason: Dyspnea Albuterol/Ipratropium (Combivent Respimat) 0 gm INH QID [facility] Last Admin: 01/24/20 16:19 Dose: 2 puff Documented by: Albuterol/Ipratropium (Combivent Respimat) 0 gm INH Q4H PRN PRN Reason: Dyspnea Dexamethasone (Decadron) 6 mg IVPUSH DAILY [facility] Last Admin: 01/24/20 09:11 Dose: 6 mg Documented by: Doxycycline Monohydrate (Doxycycline Monohydrate) 100 mg PO BID [facility] Last Admin: 01/24/20 09:30 Dose: 100 mg Documented by: Famotidine (Pepcid) 20 mg IVPUSH BID@0800,1800 [facility] Last Admin: 01/24/20 09:16 Dose: 20 mg Documented by: Guaifenesin/Dextromethorphan (Mucinex Dm Er 600-30 Mg) 1 tab PO BID [facility] Last Admin: 01/24/20 09:28 Dose: 1 tab Documented by: Heparin Sodium (Porcine) (Heparin Sodium) 5,000 units SUBCUT Q8H [facility] Last Admin: 01/24/20 16:19 Dose: 5,000 units Documented by: Remdesivir 100 mg/ Sodium (Chloride) 270 mls @ 270 mls/hr IV Q24H [facility] Stop: 01/26/20 08:59 Last Admin: 01/24/20 09:10 Dose: 270 mls/hr Documented by: Lisinopril (Prinivil) 10 mg PO QPM [facility] Last Admin: 01/23/20 17:47 Dose: 10 mg Documented by: Potassium Chloride (Klor-Con M20) 20 meq PO BID [facility] Last Admin: 01/24/20 09:27 Dose: 20 meq Documented by: Sodium Chloride (Saline Flush) 10 ml FLUSH ASDIRECTED PRN PRN Reason: Keep Vein Open Last Admin: 01/24/20 10:48 Dose: 10 ml Documented by: Sodium Chloride (Saline Flush) 10 ml FLUSH Q12HR PRN PRN Reason: Keep Vein Open Temazepam (Restoril) 15 mg PO BEDTIME PRN PRN Reason: Insomnia Last Admin: 01/23/20 20:36 Dose: 15 mg Documented by: Triamterene/HCTZ (Maxzide 50-75 Mg) 0.5 each PO DAILY [facility] Last Admin: 01/24/20 09:29 Dose: 0.5 each Documented by: Discontinued Medications Acetaminophen (Tylenol) 650 mg PO NOW ONE Stop: 01/22/20 00:30 Last Admin: 01/22/20 00:31 Dose: 650 mg Documented by: Acetaminophen (Tylenol) Confirm Administered Dose 650 mg .ROUTE .STK-MED ONE Stop: 01/23/20 20:18 Last Admin: 01/23/20 20:21 Dose: Not Given Documented by: Famotidine (Pepcid) 40 mg IVPUSH ONETIME ONE Stop: 01/21/20 22:47 Last Admin: 01/21/20 23:12 Dose: 40 mg Documented by: Ceftriaxone Sodium 1 gm/ (Sodium Chloride) 100 mls @ 200 mls/hr IV ONETIME ONE Stop: 01/22/20 00:30 Last Admin: 01/22/20 00:12 Dose: 200 mls/hr Documented by: Remdesivir 200 mg/ Sodium (Chloride) 290 mls @ 290 mls/hr IV ONETIME ONE Stop: 01/22/20 09:50 Last Admin: 01/22/20 10:32 Dose: 290 mls/hr Documented by: Iopamidol (Isovue-370 (76%)) 100 ml IVPUSH ONETIME STA Stop: 01/22/20 07:43 Last Admin: 01/22/20 12:48 Dose: 100 ml Documented by: Lisinopril (Prinivil) 10 mg PO ONETIME ONE Stop: 01/22/20 00:37 Last Admin: 01/22/20 01:33 Dose: 10 mg Documented by: Ticagrelor (Brilinta) 180 mg PO ONETIME ONE Stop: 01/21/20 22:47 Last Admin: 01/21/20 23:11 Dose: 180 mg Documented by: - Exam Quality Assessment: Supplemental Oxygen, DVT Prophylaxis General: Alert, Oriented, Cooperative, No Acute Distress HEENT: Pupils Equal, Pupils Reactive, EOMI, Mucous Membr. Moist/[place] Neck: Supple Lungs: Clear to Auscultation, Normal Respiratory Effort Cardiovascular: Regular Rate, Regular Rhythm GI/Abdominal Exam: Soft, Non-Tender, No Distention (Female) Exam: Deferred Back Exam: No: CVA Tenderness (L), CVA Tenderness (R), Muscle Spasm Extremities: Non-Tender, Normal Capillary Refill Skin: Warm, Dry Neurological: No New Focal Deficit Psy/Mental Status: Alert, Normal Affect, Normal Mood Sepsis Event Note - Evaluation Sepsis Screening Result: No Definite Risk - Focused Exam Vital Signs: Vital Signs Temp Pulse Resp BP Pulse Ox 01/24/20 14:00 36.6 C 78 20 150/78 H 92 L 01/24/20 12:00 20 94 L 01/24/20 10:17 20 93 L 01/24/20 09:30 93 L 01/24/20 09:00 36.6 C 67 20 148/85 H 97 - Problem List & Annotations (1) COVID-19 SNOMED Code(s): 612196930 Code(s): U07.1 - COVID-19 Status: Acute Priority: High Current Visit: Yes Onset Date: ~01/21/20 Annotation/Comment:: Still with mild intermittent oxygen requirement. Receiving Remdesivir and Dexamethasone. (2) Pneumonia SNOMED Code(s): 250909429 Code(s): J18.9 - PNEUMONIA, UNSPECIFIED ORGANISM Status: Acute Priority: High Current Visit: Yes Onset Date: 01/22/20 Qualifiers: Pneumonia type: due to unspecified organism Laterality: bilateral Lung location: unspecified part of lung Qualified Code(s): J18.9 - Pneumonia, unspecified organism Annotation/Comment:: Active Covid infection/pneumonia component present. Improving. Was off of oxygen for part of today. (3) D-dimer, elevated SNOMED Code(s): 492709698 Code(s): R79.89 - OTHER SPECIFIED ABNORMAL FINDINGS OF BLOOD CHEMISTRY Status: Acute Priority: High Current Visit: Yes Onset Date: 01/22/20 Annotation/Comment:: Venous Doppler studies of the lower extremities bilaterally and CTA of the chest both negative for DVT and/or PE. Subcutaneous heparin therapy initiated on admission as treatment both for her D-dimer elevation and COVID-19. Note that sodium heparin therapy has a better anti-inflammatory effect for COVID-19 in comparison to Lovenox based on studies. D-dimer normal on 01/22 with continuation of subcutaneous heparin for now. Consider Eliquis therapy at discharge secondary to initial D-dimer elevation, current COVID-19 infection, etc. with risks/ benefits to be discussed if this therapy is initiated. (4) Hypoalbuminemia SNOMED Code(s): 505667425 Code(s): E88.09 - OTH DISORDERS OF PLASMA-PROTEIN METABOLISM, NEC Status: Acute Priority: Medium Current Visit: Yes Onset Date: 01/23/20 Annotation/Comment:: Observe for now. (5) Hypokalemia SNOMED Code(s): 75255616 Code(s): E87.6 - HYPOKALEMIA Status: Acute Priority: Medium Current Visit: Yes Onset Date: 01/23/20 Annotation/Comment:: Mild hypokalemia likely secondary to her mild diarrhea. No evidence of C. difficile. Some diarrhea was present prior to patient's admission and initiation of the antibiotics as above. Oral potassium chloride therapy was initiated on 01/22, although this may not be required at discharge. (6) Peptic reflux disease SNOMED Code(s): 741846409 Code(s): K21.9 - GASTRO-ESOPHAGEAL REFLUX DISEASE WITHOUT ESOPHAGITIS Status: Acute Priority: Medium Current Visit: Yes Onset Date: 01/21/20 Annotation/Comment:: High-dose IV Pepcid given in the emergency room. Observe for now. Continue IV Pepcid therapy secondary to her COVID-19 and his GI prophylaxis secondary to her IV Decadron therapy. (7) Hypertension SNOMED Code(s): 35875208 Code(s): I10 - ESSENTIAL (PRIMARY) HYPERTENSION Status: Chronic Priority: Medium Current Visit: Yes Qualifiers: Hypertension type: essential hypertension Qualified Code(s): I10 - Essential (primary) hypertension Annotation/Comment:: Moderate control in the emergency room however improved after initiation of lisinopril shortly after admission. Continue this therapy both for treatment of her hypertension and COVID-19. Continue to observe closely. (8) Osteoarthritis SNOMED Code(s): 758682717 Code(s): M19.90 - UNSPECIFIED OSTEOARTHRITIS, UNSPECIFIED SITE Status: Chronic Priority: Medium Current Visit: Yes Qualifiers: Osteoarthritis location: multiple joints Osteoarthritis type: primary Qualified Code(s): M89.49 - Other hypertrophic osteoarthropathy, multiple sites Annotation/Comment:: Stable by history. - Problem List Review Problem List Initiated/Reviewed/Updated: Yes - Assessment Assessment:: As above - Plan Plan:: As above. Extensive precautions were given to the patient, who is in agreement with the treatment plan. Anticipate patient will remain inpatient through the weekend while above concerns are addressed and due to continued intermittent oxygen requirement.
[2020-01-24] MEDS: Temazepam 15 MG Cap PO PRN (21:01)
[2020-01-25] MEDS: Heparin Sodium 5,000 Units/ML Vial SUBCUT SCH ×2 (00:06→08:13)
[2020-01-25] MEDS: Dexamethasone 10 MG/ML SDV IVPUSH SCH (08:11)
[2020-01-25] MEDS: Albuterol/Ipratropium 4 GM Inhalation Spray INH SCH ×2 (08:11→11:52)
[2020-01-25] MEDS: Doxycycline Monohydrate 100 MG Cap PO SCH (08:13)
[2020-01-25] MEDS: Hydrochlorothiazide/Triamterene 50-75 MG Tab PO SCH (08:15)
[2020-01-25] MEDS: Potassium Chloride 20 MEQ Tab.ER PO SCH (08:15)
[2020-01-25] MEDS: Dextromethorphan/guaiFENesin 600-30 MG Tab.ER PO SCH (08:16)
[2020-01-25] MEDS: Famotidine 20 MG/2 ML SDV IVPUSH SCH (08:17)
[2020-01-25] MEDS: Sodium Chloride 0.9% 10 ML Syringe FLUSH PRN (08:19)
[2020-01-25 08:47] LABS: CHLORIDE,CL 106 mmol/L (98-107); SODIUM,NA 139 mmol/L (136-145)
--- NOTE | 2020-01-25 15:34 | PCM.DCSUM1 ---
Discharge Summary - Hospital Course Brief History: Patient admitted for further evaluation and treatment of acute Covid infection. Diagnosis: Stroke: No - Discharge Data Discharge Date: 01/25/20 Discharge Disposition: Home, Self-Care 01 Condition: Good - Referral to Home Health Primary Care Physician: Joceline Segundo NP - Discharge Diagnosis/Problem(s) (1) COVID-19 SNOMED Code(s): 759823591 ICD Code: U07.1 - COVID-19 Status: Acute Priority: High Current Visit: Yes Onset Date: ~01/21/20 Problem Details: Treated with Remdesivir and Dexamethasone. No oxygen requirement noted overnight/today. Feels much improved. (2) Pneumonia SNOMED Code(s): 423328961 ICD Code: J18.9 - PNEUMONIA, UNSPECIFIED ORGANISM Status: Acute Priority: High Current Visit: Yes Onset Date: 01/22/20 Problem Details: Active Covid infection with pneumonia component present. Qualifiers: Pneumonia type: due to unspecified organism Laterality: bilateral Lung location: unspecified part of lung Qualified Code(s): J18.9 - Pneumonia, unspecified organism (3) D-dimer, elevated SNOMED Code(s): 357518277 ICD Code: R79.89 - OTHER SPECIFIED ABNORMAL FINDINGS OF BLOOD CHEMISTRY Status: Acute Priority: High Current Visit: Yes Onset Date: 01/22/20 Problem Details: Normalized. Venous Doppler studies of the lower extremities bilaterally and CTA of the chest both negative for DVT and/or PE. Subcutaneous heparin therapy initiated on admission as treatment both for her D-dimer elevation and COVID-19. Note that sodium heparin therapy has a better anti-inflammatory effect for COVID-19 in comparison to Lovenox based on studies. D-dimer normal on 01/22 with continuation of subcutaneous heparin. Will have patient continue taking daily baby ASA after discharge (4) Hypoalbuminemia SNOMED Code(s): 993531100 ICD Code: E88.09 - OTH DISORDERS OF PLASMA-PROTEIN METABOLISM, NEC Status: Acute Priority: Medium Current Visit: Yes Onset Date: 01/23/20 Problem Details: Follow up with PCP (5) Hypokalemia SNOMED Code(s): 50872126 ICD Code: E87.6 - HYPOKALEMIA Status: Acute Priority: Medium Current Visit: Yes Onset Date: 01/23/20 Problem Details: Mild hypokalemia likely secondary to her mild diarrhea. No evidence of C. difficile. Has normalized. Some diarrhea was present prior to patient's admission and initiation of the antibiotics as above. Oral potassium chloride therapy was initiated on 01/22. Will not be continued at discharge. (6) Peptic reflux disease SNOMED Code(s): 286497689 ICD Code: K21.9 - GASTRO-ESOPHAGEAL REFLUX DISEASE WITHOUT ESOPHAGITIS Status: Acute Priority: Medium Current Visit: Yes Onset Date: 01/21/20 Problem Details: High-dose IV Pepcid given in the emergency room. Continue IV Pepcid therapy secondary to her COVID-19 and his GI prophylaxis secondary to her IV Decadron therapy. (7) Hypertension SNOMED Code(s): 53113938 ICD Code: I10 - ESSENTIAL (PRIMARY) HYPERTENSION Status: Chronic Priority: Medium Current Visit: Yes Problem Details: Overall stable throughout stay. Follow up with PCP. Qualifiers: Hypertension type: essential hypertension Qualified Code(s): I10 - Essential (primary) hypertension (8) Osteoarthritis SNOMED Code(s): 811454385 ICD Code: M19.90 - UNSPECIFIED OSTEOARTHRITIS, UNSPECIFIED SITE Status: Chronic Priority: Medium Current Visit: Yes Problem Details: Stable by history. Qualifiers: Osteoarthritis location: multiple joints Osteoarthritis type: primary Qualified Code(s): M89.49 - Other hypertrophic osteoarthropathy, multiple sites - Patient Summary/Data Hospital Course: As above. Patient received IV Remdesivir and Dexamethasone during stay. Supplemental O2 required. Gradual improvement since admission. Labs stable. No fevers. Improving energy level. No O2 requirement observed today. OK to be discharged home. Precautions reviewed at time of discharge. To follow up as needed if any worsening is noted. Otherwise to follow up as needed with PCP. - Patient Instructions Diet: Anti-Inflammatory Activity: As Tolerated Driving: May Drive Today Showering/Bathing: May Shower Other/Special Instructions: Call us if you have questions! Follow up with your primary care provider next week for recheck. We did start you on a new BP medicine as your blood pressure was running high. Make sure that it is helping and if it needs to be continued. You were given a bottle of Doxycycline so that you can finish your antibiotic therapy. Take it easy and advance activity as tolerated. - Discharge Plan *PRESCRIPTION DRUG MONITORING PROGRAM REVIEWED*: Not Applicable *COPY OF PRESCRIPTION DRUG MONITORING REPORT IN PATIENT ERIC: Not Applicable Prescriptions/Med Rec: lisinopriL [Prinivil] 10 mg PO QPM #30 tablet Home Medications: Home Meds Acetaminophen [Tylenol Extra Strength] 500 mg PO BEDTIME 01/21/20 [History] Multivitamin with Minerals [Multiple Vitamin] 1 tab PO DAILY 01/21/20 [History] Naproxen Sodium [Aleve] 220 mg PO DAILY 01/21/20 [History] Triamterene/Hydrochlorothiazid [Triamterene-HCTZ 37.5-25 MG] 1 tab PO DAILY 01/21/20 [History] Albuterol/Ipratropium [Combivent Respimat] 1 dose INH QID inhaler 01/25/20 [Rx] Doxycycline Monohydrate 100 mg PO BID cap 01/25/20 [Rx] lisinopriL [Prinivil] 10 mg PO QPM #30 tablet 01/25/20 [Rx] Patient Handouts: COVID-19 Forms: ED Department Discharge Referrals: Joceline Segundo NP [Primary Care Provider] - - Discharge Summary/Plan Comment DC Time >30 min.: No - General Info Date of Service: 01/25/20 Admission Dx/Problem (Free Text: 1. COVID-19 2. D-dimer elevation 3. Hypertension Subjective Update: Overall feels improved. Has some anxiety that continues, affects sleep. Feels like she can return home. Functional Status: Reports: Pain Controlled, Tolerating Diet, Ambulating, Urinating, Incentive Spirometry. Denies: New Symptoms - Review of Systems General: Reports: Fatigue, Appetite (improving but still not very hungry). Denies: Fever, Chills, Night Sweats HEENT: Reports: No Symptoms Pulmonary: Reports: Cough. Denies: Shortness of Breath, Pleuritic Chest Pain, Hemoptysis, Wheezing Cardiovascular: Denies: Chest Pain, Palpitations, Lightheadedness Gastrointestinal: Denies: Abdominal Pain, Constipation, Diarrhea, Nausea, Vomiting Genitourinary: Reports: No Symptoms Musculoskeletal: Reports: Other (no acute changes from baseline) Skin: Reports: No Symptoms Neurological: Denies: Headache, Trouble Speaking, Difficulty Walking, Change in Speech Psychiatric: Reports: No Symptoms - Patient Data Vitals - Most Recent: Last Vital Signs Temp 37.1 C 01/25/20 11:52 Pulse 84 01/25/20 11:52 Resp 18 01/25/20 11:52 BP 140/79 01/25/20 11:52 Pulse Ox 92 L 01/25/20 11:52 Weight - Most Recent: 95.254 kg Lab Results - Last 24 hrs: Laboratory Results - last 24 hr 01/25/20 01/25/20 Range/Units 08:15 08:15 WBC 7.5 (4.0-10.2) K/uL RBC 5.08 (3.77-5.09) M/uL Hgb 15.1 (11.7-15.5) g/dL Hct 45.7 (34.0-46.0) % MCV 90.0 (84.0-98.0) fL MCH 29.7 (28.2-33.3) pg MCHC 33.0 (31.7-36.0) g/dL RDW 14.6 H (11.2-14.1) % Plt Count 279 (150-350) K/uL Neut % (Auto) 82.5 H (45.0-80.0) % Lymph % (Auto) 12.0 (10.0-50.0) % [place] % (Auto) 5.5 (2.0-14.0) % Eos % (Auto) 0.0 (0.0-5.0) % Baso % (Auto) 0.0 (0.0-2.0) % Neut # (Auto) 6.18 (1.40-7.00) K/uL Lymph # (Auto) 0.90 (0.50-3.50) K/uL [place] # (Auto) 0.41 (0.00-1.00) K/uL Eos # (Auto) 0.00 (0.00-0.50) K/uL Baso # (Auto) 0.00 (0.00-0.20) K/uL Sodium 139 (136-145) mmol/L Potassium 4.4 (3.5-5.1) mmol/L Chloride 106 (98-107) mmol/L Carbon Dioxide 22.7 (21.0-32.0) mmol/L BUN 31 H (7-18) mg/dL Creatinine 0.59 (0.51-1.17) mg/dL Est Cr Clr Drug Dosing 84.26 mL/min Estimated GFR (MDRD) > 60 mL/min Glucose 129 H (74-106) mg/dL Calcium 8.9 (8.5-10.1) mg/dL Total Bilirubin 0.4 (0.2-1.0) mg/dL AST 23 (15-37) U/L ALT 36 (12-78) U/L Alkaline Phosphatase 60 (46-116) IU/L Total Protein 7.7 (6.4-8.2) g/dL Albumin 3.3 L (3.4-5.0) g/dL JAYCE Results - Last 24 hrs: Microbiology 01/21/20 23:10 Aerobic Blood Culture - Preliminary Blood - Venous - Lab Draw NO GROWTH AFTER 3 DAYS Anaerobic Blood Culture - Preliminary NO GROWTH AFTER 3 DAYS 01/21/20 23:00 Aerobic Blood Culture - Preliminary Blood - Venous NO GROWTH AFTER 3 DAYS Anaerobic Blood Culture - Preliminary NO GROWTH AFTER 3 DAYS Med Orders - Current: Current Medications Acetaminophen (Tylenol) 650 mg PO Q4H PRN PRN Reason: Pain/Fever Last Admin: 01/23/20 20:23 Dose: 650 mg Documented by: Albuterol/Ipratropium (Combivent Respimat) 0 gm INH Q4H PRN PRN Reason: Dyspnea Albuterol/Ipratropium (Combivent Respimat) 0 gm INH QID [facility] Last Admin: 01/25/20 11:52 Dose: 2 puff Documented by: Albuterol/Ipratropium (Combivent Respimat) 0 gm INH Q4H PRN PRN Reason: Dyspnea Dexamethasone (Decadron) 6 mg IVPUSH DAILY [facility] Last Admin: 01/25/20 08:11 Dose: 6 mg Documented by: Doxycycline Monohydrate (Doxycycline Monohydrate) 100 mg PO BID [facility] Last Admin: 01/25/20 08:13 Dose: 100 mg Documented by: Famotidine (Pepcid) 20 mg IVPUSH BID@0800,1800 [facility] Last Admin: 01/25/20 08:17 Dose: 20 mg Documented by: Guaifenesin/Dextromethorphan (Mucinex Dm Er 600-30 Mg) 1 tab PO BID [facility] Last Admin: 01/25/20 08:16 Dose: 1 tab Documented by: Heparin Sodium (Porcine) (Heparin Sodium) 5,000 units SUBCUT Q8H [facility] Last Admin: 01/25/20 08:13 Dose: 5,000 units Documented by: Remdesivir 100 mg/ Sodium (Chloride) 270 mls @ 270 mls/hr IV Q24H [facility] Stop: 01/26/20 08:59 Last Admin: 01/25/20 08:18 Dose: 270 mls/hr Documented by: Lisinopril (Prinivil) 10 mg PO QPM [facility] Last Admin: 01/24/20 18:08 Dose: 10 mg Documented by: Potassium Chloride (Klor-Con M20) 20 meq PO BID [facility] Last Admin: 01/25/20 08:15 Dose: 20 meq Documented by: Sodium Chloride (Saline Flush) 10 ml FLUSH ASDIRECTED PRN PRN Reason: Keep Vein Open Last Admin: 01/25/20 08:19 Dose: 10 ml Documented by: Sodium Chloride (Saline Flush) 10 ml FLUSH Q12HR PRN PRN Reason: Keep Vein Open Temazepam (Restoril) 15 mg PO BEDTIME PRN PRN Reason: Insomnia Last Admin: 01/24/20 21:01 Dose: 15 mg Documented by: Triamterene/HCTZ (Maxzide 50-75 Mg) 0.5 each PO DAILY [facility] Last Admin: 01/25/20 08:15 Dose: 0.5 each Documented by: Discontinued Medications Acetaminophen (Tylenol) 650 mg PO NOW ONE Stop: 01/22/20 00:30 Last Admin: 01/22/20 00:31 Dose: 650 mg Documented by: Acetaminophen (Tylenol) Confirm Administered Dose 650 mg .ROUTE .STK-MED ONE Stop: 01/23/20 20:18 Last Admin: 01/23/20 20:21 Dose: Not Given Documented by: Famotidine (Pepcid) 40 mg IVPUSH ONETIME ONE Stop: 01/21/20 22:47 Last Admin: 01/21/20 23:12 Dose: 40 mg Documented by: Ceftriaxone Sodium 1 gm/ (Sodium Chloride) 100 mls @ 200 mls/hr IV ONETIME ONE Stop: 01/22/20 00:30 Last Admin: 01/22/20 00:12 Dose: 200 mls/hr Documented by: Remdesivir 200 mg/ Sodium (Chloride) 290 mls @ 290 mls/hr IV ONETIME ONE Stop: 01/22/20 09:50 Last Admin: 01/22/20 10:32 Dose: 290 mls/hr Documented by: Iopamidol (Isovue-370 (76%)) 100 ml IVPUSH ONETIME STA Stop: 01/22/20 07:43 Last Admin: 01/22/20 12:48 Dose: 100 ml Documented by: Lisinopril (Prinivil) 10 mg PO ONETIME ONE Stop: 01/22/20 00:37 Last Admin: 01/22/20 01:33 Dose: 10 mg Documented by: Ticagrelor (Brilinta) 180 mg PO ONETIME ONE Stop: 01/21/20 22:47 Last Admin: 01/21/20 23:11 Dose: 180 mg Documented by: - Exam Quality Assessment: Reports: DVT Prophylaxis General: Reports: Alert, Oriented HEENT: Reports: Pupils Equal, Pupils Reactive, EOMI, Mucous Membr. Moist/[place] Neck: Reports: Supple Lungs: Reports: Normal Respiratory Effort, Other (faint crackles right base) Cardiovascular: Reports: Regular Rate, Regular Rhythm GI/Abdominal Exam: Normal Bowel Sounds, Soft, Non-Tender, No Distention (Female) Exam: Deferred Rectal (Female) Exam: Deferred Back Exam: Reports: Normal Inspection Extremities: Normal Inspection, Normal Capillary Refill Skin: Reports: Warm, Dry Neurological: Reports: No New Focal Deficit Psy/Mental Status: Reports: Alert, Normal Affect, Normal Mood
== END 2020-01-25 16:30 | disposition home or self-care (01) | DRG 137 ==
LOC: LL.ED 22:42 → LL.MS 01-22 00:26 → UNDOADMIN 01-22 00:26 → LL.MS 01-22 00:30
PROVIDERS: ADMIT Family Medicine; ATTEND Family Medicine
PROC: XW033E5 Introduction of Remdesivir Anti-infective into Peripheral Vein, Percutaneous Approach, New Technology Group 5 (ICD-10-PCS; principal; 2020-01-22)
PROC: 8E0ZXY6 Isolation (ICD-10-PCS; 2020-01-22)
DX: U07.1 COVID-19 (principal); J12.89 Other viral pneumonia; R79.89 Other specified abnormal findings of blood chemistry; I82.409 Acute embolism and thrombosis of unspecified deep veins of unspecified lower extremity; E88.09 Other disorders of plasma-protein metabolism, not elsewhere classified; E87.6 Hypokalemia; K21.9 Gastro-esophageal reflux disease without esophagitis; F10.10 Alcohol abuse, uncomplicated; I10 Essential (primary) hypertension; I25.9 Chronic ischemic heart disease, unspecified; E87.2 Acidosis; M19.90 Unspecified osteoarthritis, unspecified site; M89.49 Other hypertrophic osteoarthropathy, multiple sites; Z79.01 Long term (current) use of anticoagulants; Z87.19 Personal history of other diseases of the digestive system; Z87.448 Personal history of other diseases of urinary system; Z86.69 Personal history of other diseases of the nervous system and sense organs; Z87.39 Personal history of other diseases of the musculoskeletal system and connective tissue; Z85.9 Personal history of malignant neoplasm, unspecified
CPT/HCPCS: 36415; 71045; 71275; 80053; 80061; 82150; 82272; 82550; 82553; 83036; 83605; 83690; 83735; 83880; 84443; 84484; 84550; 85025; 85379; 85610; 85730; 86140; 87040; 87081; 87338; 87430; 87804; 93005; 93970; 94640; 96374; 96375; 99285-25; A9270-GY; J0696; J1100; J1644; J3490; J7050; Q9967; U0002

== ENCOUNTER 2021-11-23 21:19 | Emergency (ER) | payer MEDICARE, BC ==
[2021-11-23 22:04] LABS: ANION GAP 9.1 meq/L (7-15); CHLORIDE,CL 101 mmol/L (98-107); SODIUM,NA 138 mmol/L (136-145)
[2021-11-23 22:12] LABS: ESTIMATED GFR 68 mL/min (>=60)
[2021-11-23] MEDS: Sodium Chloride 0.9% 10 ML Syringe FLUSH PRN (22:34)
[2021-11-23] MEDS: Acetaminophen 325 MG Tab PO ONE (22:35)
[2021-11-23] MEDS: Ondansetron 4 MG Tab.DIS PO ONE (22:35)
[2021-11-23] MEDS: Sodium Chloride 0.9% 1,000 ML IV ONE (22:35)
[2021-11-23] MEDS: Ketorolac 15 MG/ML SDV IVPUSH ONE (22:36)
[2021-11-23] MEDS: Ketorolac 15 MG/ML SDV IM ONE (22:40)
[2021-11-23 22:42] LABS: RESPIRATORY SYNCYTIAL VIR NAA NEGATIVE (NEGATIVE)
[2021-11-23 22:43] LABS: CORONAVIRUS COVID-19 NAA POSITIVE (NEGATIVE)
== END 2021-11-23 23:15 | disposition home or self-care (01) ==
LOC: LL.ED 21:19
DX: U07.1 COVID-19 (principal); E78.00 Pure hypercholesterolemia, unspecified; I10 Essential (primary) hypertension; E66.9 Obesity, unspecified; Z68.34 Body mass index [BMI] 34.0-34.9, adult; Z88.1 Allergy status to other antibiotic agents; Z79.899 Other long term (current) drug therapy
CPT/HCPCS: 0241U; 36415; 80053; 81001; 83605; 83735; 85025; 87081; 87086; 87088; 87186; 87430; 96374; 99283-25; 99284; A9270-GY; J1885; J3490; J7030